=== PATIENT | male | born 1950 | race Caucasian/White ===

== ENCOUNTER 2017-08-12 10:47 | Inpatient (IN) | payer MEDICARE, MEDICAID ==
--- NOTE | 2017-08-12 11:02 | ED Physician Chart ---
ED Chief Complaint/HPI - Patient Information Date Seen:: 08/12/17 Time Seen:: 10:55 Chief Complaint:: Pt is here for medical clearance for Geropsych admission. History of Present Illness:: Brought in by private auto from assisted living facility for the above reason. Pt has h/o Paranoid schizophrenia, depression, and obsessive compulsive disorder. Pt apparently has had difficulty in adjusting to his current living condition. Pt otherwise feels well without bodily pain or discomfort. No dyspnea or lightheadedness. Pt has been ambulatory without difficulty. Pt currently denies any depressed mood, S.I. or H.I. No auditory or visual hallucination. Allergies:: NKA Vitals:: see Nurse Note. Historian:: Patient Family MD/PCP:: Dr. Holland LMP:: N/A Review:: Nurse's Note Reviewed ED Review of Systems - Review of Systems General/Constitutional: No fever, No chills, No weight loss, No weakness, No diaphoresis, No edema, No loss of appetite Skin: No rash, No bruising Head: No headache, No light-headedness Eyes: No loss of vision, No pain ENT: No earache, No sore throat Neck: No neck pain, No swelling, No thyromegaly, No stiffness, No mass noted Cardio Vascular: No chest pain, No palpitations, No edema Pulmonary: No SOB, No cough, No wheezing GI: No nausea, No vomiting, No diarrhea, No pain G/U: No dysuria, No frequency, No hematuria Musculoskeletal: No bone or joint pain Endocrine: No polyuria, No polydipsia Psychiatric: Prior psych history, No depression, No anxiety, No suicidal ideation, No homicidal ideation, No auditory hallucination, No visual hallucination Hematopoietic: No bruising, No lymphadenopathy Allergic/Immuno: No urticaria, No angioedema Neurological: No syncope, No focal symptoms, No weakness, No paresthesia, No headache, No seizure, No dizziness, No confusion ED Past Medical History - Past Medical History Past Medical History: HTN, Asthma/COPD, PUD/GERD, Thyroid disorder Family History: None Social History: Non Smoker, No Alcohol, No Drug Use, Single, Care Facility Employment:: unemployed. Surgical History: None Family Medical History - Family Member Mother History Unknown: Yes ED Physical Exam - Physical Examination General/Constitutional: Awake, Well-developed, well-nourished, Alert, No distress, Non-toxic appearing, Ambulatory Other Gen/Cons comments:: Breathes comfortably, speaks clearly, and ambulates without difficulty. Head: Atraumatic Eyes: Lids, conjuctiva normal, PERRL, EOMI Skin: Nl inspection, No rash, No ecchymosis, Well hydrated, No lymphadenopathy ENMT: External ears, nose nl, Nasal exam nl, Oropharynx nl Neck: Nontender, Full ROM w/o pain, No JVD, No nuchal rigidity, No mass, No stridor Respiratory: Nl effort/Exclusion, Clear to Auscultation, No Wheeze/Rhonchi/Rales Cardio Vascular: RRR (HR 96), No murmur, gallop, rubs GI: No tenderness/rebounding/guarding, No organomegaly, Normal BS's, Nondistended, No mass/bruits Other GI comments:: Abdomen is soft. : No CVA tenderness Extremities: No tenderness or effusion, No edema Neuro/Psych: Alert/oriented (oriented x 3), Mood normal, Normal gait, No focal deficits Misc: Normal back, No paraspinal tenderness ED Labs/Radiology/EKG Results - Lab Results Results: Laboratory Tests 08/12/17 08/12/17 08/12/17 11:18 11:18 11:18 WBC 8.4 RBC 4.54 Hgb 13.0 Hct 39.1 L MCV 86.2 MCH 28.7 MCHC Differential 33.3 RDW 14.7 Plt Count 178 MPV 8.1 Neutrophils % 73.3 Lymphocytes % 17.0 L Monocytes % 8.5 Eosinophils % 0.3 Basophils % 0.9 Sodium 135 L Potassium 4.0 Chloride 103 Carbon Dioxide 26.5 Anion Gap 9.5 BUN 16 Creatinine 0.7 Est GFR ( Amer) > 60.0 Est GFR (Non-Af Amer) > 60.0 BUN/Creatinine Ratio 22.9 Glucose 91 Calcium 9.3 Total Bilirubin 0.3 AST 13 ALT 7 Alkaline Phosphatase 47 Total Protein 7.1 Albumin 4.0 L Globulin 3.1 Albumin/Globulin Ratio 1.3 Valproic Acid 115.2 H TSH is pending. ED Septic Shock - . Is Septic Shock (SBP<90, OR Lactate>4 mmol\L) present?: No ED Reassessment (Disposition) - Reassessment Reassessment:: 1215 Pt remains stable. No new complaint or findings. Available lab results have been reviewed with pt. Management plan has been discussed. Pt is medically cleared for Geropsych admission. In house physician Dr. Mckay is to follow on pending lab resultsz and to provide further medical care. - Diagnosis Diagnosis:: H/O paranoid schizophrenia, depression, and obsessive compulsive disorder. H/O hypothyroidism. H/O HTN. - Patient Disposition Admitted to:: [facility] Admitting Medical Physician:: Tessie Bonds Admitting Psych Physician:: Ge Hollingsworth Time:: 12:20 Condition at Disposition:: Stable
[2017-08-12 11:33] LABS: % BASOPHILS 0.9 % (0.0-2.0); % EOSINOPHILS 0.3 % (0.0-5.0); % MONOCYTES 8.5 % (2.0-10.0); % NEUTROPHILS 73.3 % (40.0-80.0); BASOPHILE ABSOLUTE 0.1 Th/cumm (0-0.2); HEMATOCRIT 39.1 % (41.0-60); LYMPHOCYTE ABSOLUTE 1.4 Th/cmm (1.5-3.0); MEAN CELL VOLUME 86.2 fl (80-99); MEAN CORPUSCULAR HEMOGLOBIN 28.7 pg (27.0-31.0); MEAN CORPUSCULAR HGB CONC 33.3 pg (28.0-36.0); MEAN PLATELET VOLUME 8.1 fl; MONOCYTE ABSOLUTE 0.7 Th/cmm (0.3-1.0); NEUTROPHILE ABSOLUTE 6.2 Th/cmm (1.8-8.0); PLATELET COUNT 178 Th/cmm (150-400); RED BLOOD COUNT 4.54 Mil/cmm (3.80-5.80); RED CELL DISTRIBUTION WIDTH 14.7 % (11.5-20.0); WHITE BLOOD COUNT 8.4 Th/cmm (4.8-10.8)
[2017-08-12 11:52] LABS: ALB/GLOB RATIO 1.3 (1.0-1.8); ALKALINE PHOSPHATASE 47 U/L (34-104); ANION GAP 9.5 (7.0-16.0); BILIRUBIN,TOTAL 0.3 mg/dL (0.3-1.0); BUN - UREA NITROGEN 16 mg/dL (7-25); CALCIUM SERUM 9.3 mg/dL (8.6-10.3); CARBON DIOXIDE 26.5 mEq/L (21.0-31.0); CHLORIDE 103 mEq/L (98-107); CREATININE - SERUM 0.7 mg/dL (0.7-1.3); GFR AFRICAN-AMERICAN > 60.0 ml/min (>90); GFR NON AFRICAN-AMERICAN > 60.0 ml/min; GLUCOSE 91 mg/dL (70-105); SGOT 13 U/L (13-39); SGPT/ALT 7 U/L (7-52); SODIUM SERUM 135 mEq/L (136-145); TOTAL PROTEIN,SERUM 7.1 gm/dL (6.0-8.3); VALPROIC ACID 115.2 ug/mL (50.0-100.0)
[2017-08-12] MEDS ORDERED: Magnesium Hydroxide (MOM) 30 mL UDC PO PRN (13:34)
[2017-08-12] MEDS ORDERED: Maalox 30 mL Cup PO PRN ×2 (13:34→19:51)
[2017-08-12 13:38] VITALS: BP 116/76
--- NOTE | 2017-08-12 20:16 | History & Physical ---
ADMIT DATE: 08/12/2017 HISTORY OF PRESENT ILLNESS: The patient is a 67-year-old male with long history of hypothyroidism, psychosis, dementia, admitted to Geropsych Department at Dr. Hollingsworth's service to [facility]. The patient denies any chest pain, shortness of breath, nausea, vomiting, fever or chills. PAST MEDICAL HISTORY: Significant for hypothyroidism, psychosis and dementia. PAST SURGICAL HISTORY: No recent surgery. ALLERGIES: None. MEDICATIONS: Follow admission reconciliation. SOCIAL HISTORY: No smoking, no alcohol, no drug. FAMILY HISTORY: Noncontributory. REVIEW OF SYSTEMS: IMMUNOSYSTEM: No history of chronic renal disorder. CARDIOVASCULAR SYSTEM: No coronary artery disease. ENDOCRINE SYSTEM: He has history of hypothyroidism. GASTROINTESTINAL SYSTEM: No upper or lower gastrointestinal bleed. NEUROLOGICAL SYSTEM: He has a history of psychosis and dementia. SKELETOMUSCULAR SYSTEM: No muscular dystrophy. HEMATOLOGIC SYSTEM: No bleeding tendencies. RESPIRATORY SYSTEM: No asthma. GENITOURINARY: No dysuria or hematuria. PHYSICAL EXAMINATION: GENERAL: He is awake, alert, mildly confused. VITAL SIGNS: His temperature is 97.8, heart rate 106 and blood pressure 116/76. HEENT: Normocephalic. Pupils reacting to light. The sclerae are clear. NECK: Supple. Negative for lymphadenopathy, JVD or bruit. CHEST: Entry of air bilaterally normal. No rales, rhonchi or wheezing. HEART: S1 and S2 normal. No gallop rhythm. ABDOMEN: Soft, bowel sounds positive. EXTREMITIES: No edema. GENITAL AND RECTAL EXAMINATION: Done by primary physician, no complaint. NEUROLOGIC: Awake, alert and mildly confused. Cranial 1-12 is within normal limits. ASSESSMENT: 1. Hypothyroidism. 2. Psychosis. 3. Dementia. PLAN: The patient in the hospital under Dr. Hollingsworth's service. Medical problems addressed during hospitalization: Psychosis and dementia. Medical problems addressed at discharge: Hypothyroidism. The patient is medically stable for activity. Thank you, Dr. Hollingsworth, for asking me to see the patient. JOB# [id number]
[2017-08-13] MEDS ORDERED: Multivitamin Tab PO SCH (09:00)
[2017-08-13] MEDS: Levothyroxine 0.05 Mg Tab PO SCH (09:38)
[2017-08-13] MEDS: Multivitamin w/ Minerals Tab PO SCH (09:38)
--- NOTE | 2017-08-13 12:31 | Psychosocial Evaluation ---
DATE OF SERVICE: 08/13/2017 AGE: 67. SEX: Male. PHYSICIAN: Dr. Hollingsworth. CHIEF COMPLAINT: Agitation and bizarre behavior. HISTORY OF PRESENT ILLNESS: The patient was admitted to the hospital because of increased agitation and because of bizarre behavior according to the staff. The patient also has not been able to follow directions and has been restless. The patient also has been pacing up and down. The staff has not been able to care for him or for his needs. The patient has diagnosis of what seems to be bipolar disorder. The patient has been taking Depakote and Seroquel. The patient said that he was hospitalized on the past in [place] for treatment of "stress." PAST MEDICAL HISTORY: The patient denies any medical problems. SOCIAL HISTORY: The patient is single, never and has no children. He currently lives in what seems [place] [facility] [place]. The patient denies alcohol or street drug use. The patient said that he used to work in a [employer] in [place] and then he moved to [place] and then to [place]. The patient said that he has only one brother that lives in [place]. He denies any legal issues or abuse issues. ALLERGIES: No known allergies. MENTAL STATUS EXAMINATION: The patient appears slightly older than stated age. Anxious. Restless. Thought processes are circumstantial with occasional flight of ideas. The patient denied hallucinations or delusions, but seems to be slightly paranoid. The patient denies any thoughts of suicide or homicide. The patient is alert and oriented to time, place, person, and situation. Intact immediate, recent and remote memories. Poor insight and poor judgment. ASSESSMENT: Bipolar disorder, severe, mixed type, with psychotic features. TREATMENT PLAN: Depakote blood level came back to be 115.2. We will decrease Depakote to a 250 mg twice a day. Also, continue to monitor his behavior closely. ESTIMATED LENGTH OF STAY: 5-7 days. PATIENT'S STRENGTHS AND WEAKNESSES: The patient's strength is not clear at this time. Weaknesses is his ineffective coping and poor impulse control. AFTER DISCHARGE PLAN: The patient will return to his placement and outpatient treatment and followup will continue as an outpatient. CRITERIA FOR DISCHARGE: The patient will not be agitated or psychotic and will stabilize psychotropic medications and will establish outpatient treatment plans. JOB# [id number]
--- NOTE | 2017-08-13 19:35 | Internal Medicine Prog Note ---
Internal Medicine Subjective - Subjective Service Date: 08/13/17 Patient seen and examined:: with staff Patient is:: awake, verbal, in bed, talking, confused Per staff patient has:: no adverse event (HE IS DOING WELL,NO CHANGES) Internal Medicine Objective - Results Result Diagrams: 08/12/17 11:18 08/12/17 11:18 Recent Labs: Laboratory Last Values WBC 8.4 Th/cmm (4.8-10.8) 08/12/17 11:18 RBC 4.54 Mil/cmm (3.80-5.80) 08/12/17 11:18 Hgb 13.0 gm/dL (12-16) 08/12/17 11:18 Hct 39.1 % (41.0-60) L 08/12/17 11:18 MCV 86.2 fl (80-99) 08/12/17 11:18 MCH 28.7 pg (27.0-31.0) 08/12/17 11:18 MCHC Differential 33.3 pg (28.0-36.0) 08/12/17 11:18 RDW 14.7 % (11.5-20.0) 08/12/17 11:18 Plt Count 178 Th/cmm (150-400) 08/12/17 11:18 MPV 8.1 fl 08/12/17 11:18 Neutrophils % 73.3 % (40.0-80.0) 08/12/17 11:18 Lymphocytes % 17.0 % (20.0-50.0) L 08/12/17 11:18 Monocytes % 8.5 % (2.0-10.0) 08/12/17 11:18 Eosinophils % 0.3 % (0.0-5.0) 08/12/17 11:18 Basophils % 0.9 % (0.0-2.0) 08/12/17 11:18 Sodium 135 mEq/L (136-145) L 08/12/17 11:18 Potassium 4.0 mEq/L (3.5-5.1) 08/12/17 11:18 Chloride 103 mEq/L (98-107) 08/12/17 11:18 Carbon Dioxide 26.5 mEq/L (21.0-31.0) 08/12/17 11:18 Anion Gap 9.5 (7.0-16.0) 08/12/17 11:18 BUN 16 mg/dL (7-25) 08/12/17 11:18 Creatinine 0.7 mg/dL (0.7-1.3) 08/12/17 11:18 Est GFR ( Amer) > 60.0 ml/min (>90) 08/12/17 11:18 Est GFR (Non-Af Amer) > 60.0 ml/min 08/12/17 11:18 BUN/Creatinine Ratio 22.9 08/12/17 11:18 Glucose 91 mg/dL (70-105) 08/12/17 11:18 Calcium 9.3 mg/dL (8.6-10.3) 08/12/17 11:18 Total Bilirubin 0.3 mg/dL (0.3-1.0) 08/12/17 11:18 AST 13 U/L (13-39) 08/12/17 11:18 ALT 7 U/L (7-52) 08/12/17 11:18 Alkaline Phosphatase 47 U/L (34-104) 08/12/17 11:18 Total Protein 7.1 gm/dL (6.0-8.3) 08/12/17 11:18 Albumin 4.0 gm/dL (4.2-5.5) L 08/12/17 11:18 Globulin 3.1 gm/dL 08/12/17 11:18 Albumin/Globulin Ratio 1.3 (1.0-1.8) 08/12/17 11:18 TSH 3.48 uIU/ml (0.34-5.60) 08/12/17 11:18 Valproic Acid 115.2 ug/mL (50.0-100.0) H 08/12/17 11:18 - Physical Exam Vitals and I&O: Vital Signs Temp 97.5 F 08/13/17 16:57 Pulse 74 08/13/17 16:57 Resp 19 08/13/17 16:57 BP 117/88 08/13/17 16:57 Pulse Ox 96 08/13/17 16:57 Intake & Output 08/13/17 08/13/17 08/14/17 06:59 18:59 06:59 Intake Total 240 900 Balance 240 900 Intake: Oral 240 900 Other: # Voids 2 4 # Bowel Movements 0 1 Active Medications: Current Medications Acetaminophen (Tylenol) 650 mg PO Q4HR PRN PRN Reason: Mild Pain / Temp above 100 Stop: 10/11/17 13:33 Al Hydrox/Mg Hydrox/Simethicone (Maalox) 30 ml PO Q4HR PRN PRN Reason: GI DISTRESS Stop: 10/11/17 19:50 Divalproex Sodium (Depakote Dr) 250 mg PO BID EARL PRN Reason: Protocol Stop: 10/12/17 08:59 Last Admin: 08/13/17 17:00 Dose: 250 mg Levothyroxine Sodium (Synthroid) 0.05 mg PO DAILY EARL Stop: 10/12/17 08:59 Last Admin: 08/13/17 09:38 Dose: 0.05 mg Lorazepam (Ativan) 0.5 mg PO Q4HR PRN; Protocol PRN Reason: Agitation Stop: 09/11/17 13:33 Magnesium Hydroxide (Milk Of Magnesia) 30 ml PO HS PRN PRN Reason: Constipation Quetiapine Fumarate (Seroquel) 100 mg PO BID EARL PRN Reason: Protocol Stop: 10/12/17 08:59 Last Admin: 08/13/17 17:00 Dose: 100 mg Quetiapine Fumarate (Seroquel) 200 mg PO HS EARL PRN Reason: Protocol Stop: 10/12/17 20:59 Zolpidem Tartrate (Ambien) 5 mg PO HS PRN PRN Reason: Insomnia Stop: 10/11/17 13:37 General: demented HEENT: NC/AT, PERRLA, EOMI, anicteric sclerae, throat clear Neck: Supple, No JVD, No thyromegaly, +2 carotid pulse wo bruit, No LAD Lungs: CTAB Cardiovascular: RRR, Normal S1, Normal S2, without murmur Abdomen: non-tender, non-distended Extremities: clear Neurological: no change Internal Medicine Assmt/Plan - Assessment Assessment: 1.HYPOTHYROIDISM. 2.PSYCHOSIS. 3.DEMENTIA. - Plan Plan: CONTINUE ON CURRENT MEDICATTION AND DIET.
[2017-08-14] MEDS: Levothyroxine 0.05 Mg Tab PO SCH (08:12)
[2017-08-14] MEDS: Multivitamin w/ Minerals Tab PO SCH (08:12)
--- NOTE | 2017-08-14 20:24 | Internal Medicine Prog Note ---
Internal Medicine Subjective - Subjective Service Date: 08/14/17 Patient seen and examined:: with staff (HE FEELS WELL,NO PAIN.) Patient is:: awake, verbal, in bed, talking, confused Per staff patient has:: no adverse event (HE IS DOING WELL,NO CHANGES) Internal Medicine Objective - Results Result Diagrams: 08/12/17 11:18 08/12/17 11:18 Recent Labs: Laboratory Last Values WBC 8.4 Th/cmm (4.8-10.8) 08/12/17 11:18 RBC 4.54 Mil/cmm (3.80-5.80) 08/12/17 11:18 Hgb 13.0 gm/dL (12-16) 08/12/17 11:18 Hct 39.1 % (41.0-60) L 08/12/17 11:18 MCV 86.2 fl (80-99) 08/12/17 11:18 MCH 28.7 pg (27.0-31.0) 08/12/17 11:18 MCHC Differential 33.3 pg (28.0-36.0) 08/12/17 11:18 RDW 14.7 % (11.5-20.0) 08/12/17 11:18 Plt Count 178 Th/cmm (150-400) 08/12/17 11:18 MPV 8.1 fl 08/12/17 11:18 Neutrophils % 73.3 % (40.0-80.0) 08/12/17 11:18 Lymphocytes % 17.0 % (20.0-50.0) L 08/12/17 11:18 Monocytes % 8.5 % (2.0-10.0) 08/12/17 11:18 Eosinophils % 0.3 % (0.0-5.0) 08/12/17 11:18 Basophils % 0.9 % (0.0-2.0) 08/12/17 11:18 Sodium 135 mEq/L (136-145) L 08/12/17 11:18 Potassium 4.0 mEq/L (3.5-5.1) 08/12/17 11:18 Chloride 103 mEq/L (98-107) 08/12/17 11:18 Carbon Dioxide 26.5 mEq/L (21.0-31.0) 08/12/17 11:18 Anion Gap 9.5 (7.0-16.0) 08/12/17 11:18 BUN 16 mg/dL (7-25) 08/12/17 11:18 Creatinine 0.7 mg/dL (0.7-1.3) 08/12/17 11:18 Est GFR ( Amer) > 60.0 ml/min (>90) 08/12/17 11:18 Est GFR (Non-Af Amer) > 60.0 ml/min 08/12/17 11:18 BUN/Creatinine Ratio 22.9 08/12/17 11:18 Glucose 91 mg/dL (70-105) 08/12/17 11:18 Calcium 9.3 mg/dL (8.6-10.3) 08/12/17 11:18 Total Bilirubin 0.3 mg/dL (0.3-1.0) 08/12/17 11:18 AST 13 U/L (13-39) 08/12/17 11:18 ALT 7 U/L (7-52) 08/12/17 11:18 Alkaline Phosphatase 47 U/L (34-104) 08/12/17 11:18 Total Protein 7.1 gm/dL (6.0-8.3) 08/12/17 11:18 Albumin 4.0 gm/dL (4.2-5.5) L 08/12/17 11:18 Globulin 3.1 gm/dL 08/12/17 11:18 Albumin/Globulin Ratio 1.3 (1.0-1.8) 08/12/17 11:18 TSH 3.48 uIU/ml (0.34-5.60) 08/12/17 11:18 Valproic Acid 115.2 ug/mL (50.0-100.0) H 08/12/17 11:18 - Physical Exam Vitals and I&O: Vital Signs Temp 97.8 F 08/14/17 20:01 Pulse 98 08/14/17 20:01 Resp 20 08/14/17 20:01 BP 135/85 08/14/17 20:01 Pulse Ox 97 08/14/17 20:01 Intake & Output 08/14/17 08/14/17 08/15/17 06:59 18:59 06:59 Intake Total 900 240 Balance 900 240 Intake: Oral 900 240 Other: # Voids 4 1 # Bowel Movements 1 Active Medications: Current Medications Acetaminophen (Tylenol) 650 mg PO Q4HR PRN PRN Reason: Mild Pain / Temp above 100 Stop: 10/11/17 13:33 Al Hydrox/Mg Hydrox/Simethicone (Maalox) 30 ml PO Q4HR PRN PRN Reason: GI DISTRESS Stop: 10/11/17 19:50 Divalproex Sodium (Depakote Dr) 250 mg PO BID EARL PRN Reason: Protocol Stop: 10/12/17 08:59 Last Admin: 08/14/17 17:24 Dose: 250 mg Levothyroxine Sodium (Synthroid) 0.05 mg PO DAILY EARL Stop: 10/12/17 08:59 Last Admin: 08/14/17 08:12 Dose: 0.05 mg Lorazepam (Ativan) 0.5 mg PO Q4HR PRN; Protocol PRN Reason: Agitation Stop: 09/11/17 13:33 Magnesium Hydroxide (Milk Of Magnesia) 30 ml PO HS PRN PRN Reason: Constipation Quetiapine Fumarate (Seroquel) 100 mg PO BID EARL PRN Reason: Protocol Stop: 10/12/17 08:59 Last Admin: 08/14/17 17:24 Dose: 100 mg Quetiapine Fumarate (Seroquel) 200 mg PO HS EARL PRN Reason: Protocol Stop: 10/12/17 20:59 Last Admin: 08/13/17 20:43 Dose: 200 mg Zolpidem Tartrate (Ambien) 5 mg PO HS PRN PRN Reason: Insomnia Stop: 10/11/17 13:37 General: demented HEENT: NC/AT, PERRLA, EOMI, anicteric sclerae, throat clear Neck: Supple, No JVD, No thyromegaly, +2 carotid pulse wo bruit, No LAD Lungs: CTAB Cardiovascular: RRR, Normal S1, Normal S2, without murmur Abdomen: non-tender, non-distended Extremities: clear Neurological: no change Internal Medicine Assmt/Plan - Assessment Assessment: 1.HYPOTHYROIDISM. 2.PSYCHOSIS. 3.DEMENTIA. - Plan Plan: CONTINUE ON CURRENT MEDICATTION AND DIET.
--- NOTE | 2017-08-15 01:14 | Progress Notes ---
DATE: 08/14/2017 SUBJECTIVE: Chart reviewed and the patient interviewed. Also discussed the patient's condition with the staff and reviewed records and labs. The patient continued to have some grandiose delusions and he thinks that he is in an senior trial attorney and talking ____ accounting assistant. 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 He also is still suspicious and paranoid. The patient also has been having difficulty following the staff directions. He also has been slightly shaky. Otherwise, the patient is compliant with taking medications. The patient has no major medical problems. ASSESSMENT: The patient is still psychotic. TREATMENT PLAN: We will continue Seroquel. We are adjusting the dose to 100 mg twice a day. Also, we will continue working on behavior modification. Also, discussed with case techniciandairy frozen manager issue and the patient might go to [facility] or [facility] when stable. JOB# [id number]
[2017-08-15] MEDS: Levothyroxine 0.05 Mg Tab PO SCH (09:30)
[2017-08-15] MEDS: Multivitamin w/ Minerals Tab PO SCH (09:30)
--- NOTE | 2017-08-15 19:33 | Internal Medicine Prog Note ---
Internal Medicine Subjective - Subjective Service Date: 08/15/17 Patient seen and examined:: with staff (HE FEELS BETTER) Patient is:: awake, verbal, in bed, talking, confused Per staff patient has:: no adverse event (HE IS DOING WELL,NO CHANGES) Internal Medicine Objective - Results Result Diagrams: 08/12/17 11:18 08/12/17 11:18 Recent Labs: Laboratory Last Values WBC 8.4 Th/cmm (4.8-10.8) 08/12/17 11:18 RBC 4.54 Mil/cmm (3.80-5.80) 08/12/17 11:18 Hgb 13.0 gm/dL (12-16) 08/12/17 11:18 Hct 39.1 % (41.0-60) L 08/12/17 11:18 MCV 86.2 fl (80-99) 08/12/17 11:18 MCH 28.7 pg (27.0-31.0) 08/12/17 11:18 MCHC Differential 33.3 pg (28.0-36.0) 08/12/17 11:18 RDW 14.7 % (11.5-20.0) 08/12/17 11:18 Plt Count 178 Th/cmm (150-400) 08/12/17 11:18 MPV 8.1 fl 08/12/17 11:18 Neutrophils % 73.3 % (40.0-80.0) 08/12/17 11:18 Lymphocytes % 17.0 % (20.0-50.0) L 08/12/17 11:18 Monocytes % 8.5 % (2.0-10.0) 08/12/17 11:18 Eosinophils % 0.3 % (0.0-5.0) 08/12/17 11:18 Basophils % 0.9 % (0.0-2.0) 08/12/17 11:18 Sodium 135 mEq/L (136-145) L 08/12/17 11:18 Potassium 4.0 mEq/L (3.5-5.1) 08/12/17 11:18 Chloride 103 mEq/L (98-107) 08/12/17 11:18 Carbon Dioxide 26.5 mEq/L (21.0-31.0) 08/12/17 11:18 Anion Gap 9.5 (7.0-16.0) 08/12/17 11:18 BUN 16 mg/dL (7-25) 08/12/17 11:18 Creatinine 0.7 mg/dL (0.7-1.3) 08/12/17 11:18 Est GFR ( Amer) > 60.0 ml/min (>90) 08/12/17 11:18 Est GFR (Non-Af Amer) > 60.0 ml/min 08/12/17 11:18 BUN/Creatinine Ratio 22.9 08/12/17 11:18 Glucose 91 mg/dL (70-105) 08/12/17 11:18 Calcium 9.3 mg/dL (8.6-10.3) 08/12/17 11:18 Total Bilirubin 0.3 mg/dL (0.3-1.0) 08/12/17 11:18 AST 13 U/L (13-39) 08/12/17 11:18 ALT 7 U/L (7-52) 08/12/17 11:18 Alkaline Phosphatase 47 U/L (34-104) 08/12/17 11:18 Total Protein 7.1 gm/dL (6.0-8.3) 08/12/17 11:18 Albumin 4.0 gm/dL (4.2-5.5) L 08/12/17 11:18 Globulin 3.1 gm/dL 08/12/17 11:18 Albumin/Globulin Ratio 1.3 (1.0-1.8) 08/12/17 11:18 TSH 3.48 uIU/ml (0.34-5.60) 08/12/17 11:18 Valproic Acid 115.2 ug/mL (50.0-100.0) H 08/12/17 11:18 - Physical Exam Vitals and I&O: Vital Signs Temp 97.8 F 08/15/17 15:58 Pulse 98 08/15/17 15:58 Resp 20 08/15/17 15:58 BP 135/85 08/15/17 15:58 Pulse Ox 97 08/15/17 15:58 Intake & Output 08/15/17 08/15/17 08/16/17 06:59 18:59 06:59 Intake Total 240 1400 Balance 240 1400 Intake: Oral 240 1400 Other: # Voids 1 5 # Bowel Movements 1 Active Medications: Current Medications Acetaminophen (Tylenol) 650 mg PO Q4HR PRN PRN Reason: Mild Pain / Temp above 100 Stop: 10/11/17 13:33 Al Hydrox/Mg Hydrox/Simethicone (Maalox) 30 ml PO Q4HR PRN PRN Reason: GI DISTRESS Stop: 10/11/17 19:50 Divalproex Sodium (Depakote Dr) 250 mg PO BID EARL PRN Reason: Protocol Stop: 10/12/17 08:59 Last Admin: 08/15/17 16:11 Dose: 250 mg Levothyroxine Sodium (Synthroid) 0.05 mg PO DAILY EARL Stop: 10/12/17 08:59 Last Admin: 08/15/17 09:30 Dose: 0.05 mg Lorazepam (Ativan) 0.5 mg PO Q4HR PRN; Protocol PRN Reason: Agitation Stop: 09/11/17 13:33 Magnesium Hydroxide (Milk Of Magnesia) 30 ml PO HS PRN PRN Reason: Constipation Quetiapine Fumarate (Seroquel) 100 mg PO BID EARL PRN Reason: Protocol Stop: 10/12/17 08:59 Last Admin: 08/15/17 16:11 Dose: 100 mg Quetiapine Fumarate (Seroquel) 200 mg PO HS EARL PRN Reason: Protocol Stop: 10/12/17 20:59 Last Admin: 08/14/17 21:31 Dose: 200 mg Zolpidem Tartrate (Ambien) 5 mg PO HS PRN PRN Reason: Insomnia Stop: 10/11/17 13:37 General: demented HEENT: NC/AT, PERRLA, EOMI, anicteric sclerae, throat clear Neck: Supple, No JVD, No thyromegaly, +2 carotid pulse wo bruit, No LAD Lungs: CTAB Cardiovascular: RRR, Normal S1, Normal S2, without murmur Abdomen: non-tender, non-distended Extremities: clear Neurological: no change Internal Medicine Assmt/Plan - Assessment Assessment: 1.HYPOTHYROIDISM. 2.PSYCHOSIS. 3.DEMENTIA. - Plan Plan: CONTINUE ON CURRENT MEDICATTION AND DIET.
--- NOTE | 2017-08-15 23:42 | Progress Notes ---
DATE: SUBJECTIVE: Chart reviewed and the patient interviewed. Also discussed the patient's condition with the staff and reviewed records and labs. The patient still has grandiose delusion and also still acting bizarre. The patient also is still pacing up and down the facility in a confused state. Also, still needs redirections because he is intrusive to others. Otherwise, the patient continued to comply with taking his medications with no side effects of Seroquel. ASSESSMENT: The patient is still psychotic. TREATMENT PLAN: Continue to monitor behavior and condition closely. Also, continue to work on confusion and paranoia and continue to follow up. Also, classification case manager working on discharge plans. JOB# [id number]
[2017-08-16] MEDS: Multivitamin w/ Minerals Tab PO SCH (08:43)
[2017-08-16] MEDS: Levothyroxine 0.05 Mg Tab PO SCH (08:45)
[2017-08-16] MEDS ORDERED: Haloperidol Lactate 5 mg/mL 1mL Vial ONE (16:03)
[2017-08-16] MEDS ORDERED: Haloperidol Lactate 5 mg/mL 1mL Vial IM ONE (16:06)
--- NOTE | 2017-08-16 19:25 | Internal Medicine Prog Note ---
Internal Medicine Subjective - Subjective Service Date: 08/16/17 Patient seen and examined:: without staff Patient is:: awake, verbal, in bed, talking, confused Per staff patient has:: no adverse event (HE IS DOING WELL,NO CHANGES) Internal Medicine Objective - Results Result Diagrams: 08/12/17 11:18 08/12/17 11:18 Recent Labs: Laboratory Last Values WBC 8.4 Th/cmm (4.8-10.8) 08/12/17 11:18 RBC 4.54 Mil/cmm (3.80-5.80) 08/12/17 11:18 Hgb 13.0 gm/dL (12-16) 08/12/17 11:18 Hct 39.1 % (41.0-60) L 08/12/17 11:18 MCV 86.2 fl (80-99) 08/12/17 11:18 MCH 28.7 pg (27.0-31.0) 08/12/17 11:18 MCHC Differential 33.3 pg (28.0-36.0) 08/12/17 11:18 RDW 14.7 % (11.5-20.0) 08/12/17 11:18 Plt Count 178 Th/cmm (150-400) 08/12/17 11:18 MPV 8.1 fl 08/12/17 11:18 Neutrophils % 73.3 % (40.0-80.0) 08/12/17 11:18 Lymphocytes % 17.0 % (20.0-50.0) L 08/12/17 11:18 Monocytes % 8.5 % (2.0-10.0) 08/12/17 11:18 Eosinophils % 0.3 % (0.0-5.0) 08/12/17 11:18 Basophils % 0.9 % (0.0-2.0) 08/12/17 11:18 Sodium 135 mEq/L (136-145) L 08/12/17 11:18 Potassium 4.0 mEq/L (3.5-5.1) 08/12/17 11:18 Chloride 103 mEq/L (98-107) 08/12/17 11:18 Carbon Dioxide 26.5 mEq/L (21.0-31.0) 08/12/17 11:18 Anion Gap 9.5 (7.0-16.0) 08/12/17 11:18 BUN 16 mg/dL (7-25) 08/12/17 11:18 Creatinine 0.7 mg/dL (0.7-1.3) 08/12/17 11:18 Est GFR ( Amer) > 60.0 ml/min (>90) 08/12/17 11:18 Est GFR (Non-Af Amer) > 60.0 ml/min 08/12/17 11:18 BUN/Creatinine Ratio 22.9 08/12/17 11:18 Glucose 91 mg/dL (70-105) 08/12/17 11:18 Calcium 9.3 mg/dL (8.6-10.3) 08/12/17 11:18 Total Bilirubin 0.3 mg/dL (0.3-1.0) 08/12/17 11:18 AST 13 U/L (13-39) 08/12/17 11:18 ALT 7 U/L (7-52) 08/12/17 11:18 Alkaline Phosphatase 47 U/L (34-104) 08/12/17 11:18 Total Protein 7.1 gm/dL (6.0-8.3) 08/12/17 11:18 Albumin 4.0 gm/dL (4.2-5.5) L 08/12/17 11:18 Globulin 3.1 gm/dL 08/12/17 11:18 Albumin/Globulin Ratio 1.3 (1.0-1.8) 08/12/17 11:18 TSH 3.48 uIU/ml (0.34-5.60) 08/12/17 11:18 Valproic Acid 115.2 ug/mL (50.0-100.0) H 08/12/17 11:18 - Physical Exam Vitals and I&O: Vital Signs Temp 97.8 F 08/15/17 15:58 Pulse 98 08/15/17 15:58 Resp 20 08/15/17 15:58 BP 135/85 08/15/17 15:58 Pulse Ox 97 08/15/17 15:58 Active Medications: Current Medications Acetaminophen (Tylenol) 650 mg PO Q4HR PRN PRN Reason: Mild Pain / Temp above 100 Stop: 10/11/17 13:33 Al Hydrox/Mg Hydrox/Simethicone (Maalox) 30 ml PO Q4HR PRN PRN Reason: GI DISTRESS Stop: 10/11/17 19:50 Divalproex Sodium (Depakote Dr) 250 mg PO BID EARL PRN Reason: Protocol Stop: 10/12/17 08:59 Last Admin: 08/16/17 18:01 Dose: Not Given Levothyroxine Sodium (Synthroid) 0.05 mg PO DAILY EARL Stop: 10/12/17 08:59 Last Admin: 08/16/17 08:45 Dose: Not Given Lorazepam (Ativan) 0.5 mg PO Q4HR PRN; Protocol PRN Reason: Agitation Stop: 09/11/17 13:33 Last Admin: 08/16/17 14:13 Dose: 0.5 mg Magnesium Hydroxide (Milk Of Magnesia) 30 ml PO HS PRN PRN Reason: Constipation Quetiapine Fumarate (Seroquel) 150 mg PO BID EARL PRN Reason: Protocol Stop: 10/12/17 08:59 Last Admin: 08/16/17 18:01 Dose: Not Given Quetiapine Fumarate (Seroquel) 300 mg PO HS EARL PRN Reason: Protocol Stop: 10/12/17 20:59 Zolpidem Tartrate (Ambien) 5 mg PO HS PRN PRN Reason: Insomnia Stop: 10/11/17 13:37 General: demented HEENT: NC/AT, PERRLA, EOMI, anicteric sclerae, throat clear Neck: Supple, No JVD, No thyromegaly, +2 carotid pulse wo bruit, No LAD Lungs: CTAB Cardiovascular: RRR, Normal S1, Normal S2, without murmur Abdomen: non-tender, non-distended Extremities: clear Neurological: no change Internal Medicine Assmt/Plan - Assessment Assessment: 1.HYPOTHYROIDISM. 2.PSYCHOSIS. 3.DEMENTIA. - Plan Plan: CONTINUE ON CURRENT MEDICATTION AND DIET.
[2017-08-17] MEDS: Levothyroxine 0.05 Mg Tab PO SCH (08:17)
[2017-08-17] MEDS: Multivitamin w/ Minerals Tab PO SCH (08:17)
--- NOTE | 2017-08-17 08:47 | Progress Notes ---
DATE: 08/16/2017 SUBJECTIVE: Chart reviewed and the patient interviewed. Also discussed the patient's condition with the staff and reviewed records and labs. The patient continued to be severely agitated and in irritable mood. The patient also actively responded to stimuli. The patient has been slamming doors and has been yelling and screaming and loud. Also, continued to be intrusive to others. Otherwise, the patient is compliance with medications and no side effects of medications. ASSESSMENT: The patient is still psychotic. TREATMENT PLAN: We will continue monitoring his behavior and his condition closely. Also, we will increase Seroquel to 150 mg twice a day and 300 mg at bedtime and will continue to follow up closely. [facility]# [id number]
--- NOTE | 2017-08-17 08:54 | Progress Notes ---
DATE: 08/17/2017 PSYCHIATRIC PROGRESS NOTE Chart reviewed and patient interviewed. Also discussed the patient's condition with the staff and reviewed the records and labs. The patient is still extremely agitated and irritable mood. Also, is actively hallucinating and staff notes that the patient has been crawling his finger on doors and talking to himself and actively responding. Also still easily agitated and easily irritable. Otherwise, the patient is cooperative with his treatment and compliant with taking his medications. ASSESSMENT: The patient is still irritable and agitated. TREATMENT PLAN: We will continue monitoring his behavior and his condition closely. Also, we will increase the Seroquel to 150 mg twice a day and 400 mg at bedtime and will continue to follow up closely. JOB# [id number]
--- NOTE | 2017-08-17 21:23 | Internal Medicine Prog Note ---
Internal Medicine Subjective - Subjective Service Date: 08/17/17 Patient seen and examined:: without staff Patient is:: awake, verbal, in bed, talking, confused Per staff patient has:: no adverse event (HE IS DOING WELL,NO CHANGES) Internal Medicine Objective - Results Result Diagrams: 08/12/17 11:18 08/12/17 11:18 Recent Labs: Laboratory Last Values WBC 8.4 Th/cmm (4.8-10.8) 08/12/17 11:18 RBC 4.54 Mil/cmm (3.80-5.80) 08/12/17 11:18 Hgb 13.0 gm/dL (12-16) 08/12/17 11:18 Hct 39.1 % (41.0-60) L 08/12/17 11:18 MCV 86.2 fl (80-99) 08/12/17 11:18 MCH 28.7 pg (27.0-31.0) 08/12/17 11:18 MCHC Differential 33.3 pg (28.0-36.0) 08/12/17 11:18 RDW 14.7 % (11.5-20.0) 08/12/17 11:18 Plt Count 178 Th/cmm (150-400) 08/12/17 11:18 MPV 8.1 fl 08/12/17 11:18 Neutrophils % 73.3 % (40.0-80.0) 08/12/17 11:18 Lymphocytes % 17.0 % (20.0-50.0) L 08/12/17 11:18 Monocytes % 8.5 % (2.0-10.0) 08/12/17 11:18 Eosinophils % 0.3 % (0.0-5.0) 08/12/17 11:18 Basophils % 0.9 % (0.0-2.0) 08/12/17 11:18 Sodium 135 mEq/L (136-145) L 08/12/17 11:18 Potassium 4.0 mEq/L (3.5-5.1) 08/12/17 11:18 Chloride 103 mEq/L (98-107) 08/12/17 11:18 Carbon Dioxide 26.5 mEq/L (21.0-31.0) 08/12/17 11:18 Anion Gap 9.5 (7.0-16.0) 08/12/17 11:18 BUN 16 mg/dL (7-25) 08/12/17 11:18 Creatinine 0.7 mg/dL (0.7-1.3) 08/12/17 11:18 Est GFR ( Amer) > 60.0 ml/min (>90) 08/12/17 11:18 Est GFR (Non-Af Amer) > 60.0 ml/min 08/12/17 11:18 BUN/Creatinine Ratio 22.9 08/12/17 11:18 Glucose 91 mg/dL (70-105) 08/12/17 11:18 Calcium 9.3 mg/dL (8.6-10.3) 08/12/17 11:18 Total Bilirubin 0.3 mg/dL (0.3-1.0) 08/12/17 11:18 AST 13 U/L (13-39) 08/12/17 11:18 ALT 7 U/L (7-52) 08/12/17 11:18 Alkaline Phosphatase 47 U/L (34-104) 08/12/17 11:18 Total Protein 7.1 gm/dL (6.0-8.3) 08/12/17 11:18 Albumin 4.0 gm/dL (4.2-5.5) L 08/12/17 11:18 Globulin 3.1 gm/dL 08/12/17 11:18 Albumin/Globulin Ratio 1.3 (1.0-1.8) 08/12/17 11:18 TSH 3.48 uIU/ml (0.34-5.60) 08/12/17 11:18 Valproic Acid 115.2 ug/mL (50.0-100.0) H 08/12/17 11:18 - Physical Exam Vitals and I&O: Vital Signs Temp 98.5 F 08/17/17 21:05 Pulse 87 08/17/17 21:05 Resp 20 08/17/17 21:05 BP 112/73 08/17/17 21:05 Pulse Ox 96 08/17/17 21:05 Intake & Output 08/17/17 08/17/17 08/18/17 06:59 18:59 06:59 Intake Total 120 120 Balance 120 120 Intake: Oral 120 120 Other: # Voids 3 1 # Bowel Movements 0 Active Medications: Current Medications Acetaminophen (Tylenol) 650 mg PO Q4HR PRN PRN Reason: Mild Pain / Temp above 100 Stop: 10/11/17 13:33 Al Hydrox/Mg Hydrox/Simethicone (Maalox) 30 ml PO Q4HR PRN PRN Reason: GI DISTRESS Stop: 10/11/17 19:50 Divalproex Sodium (Depakote Dr) 250 mg PO BID EARL PRN Reason: Protocol Stop: 10/12/17 08:59 Last Admin: 08/17/17 17:29 Dose: 250 mg Levothyroxine Sodium (Synthroid) 0.05 mg PO DAILY EARL Stop: 10/12/17 08:59 Last Admin: 08/17/17 08:17 Dose: 0.05 mg Lorazepam (Ativan) 0.5 mg PO Q4HR PRN; Protocol PRN Reason: Agitation Stop: 09/11/17 13:33 Last Admin: 08/17/17 16:13 Dose: 0.5 mg Magnesium Hydroxide (Milk Of Magnesia) 30 ml PO HS PRN PRN Reason: Constipation Quetiapine Fumarate (Seroquel) 150 mg PO BID EARL PRN Reason: Protocol Stop: 10/12/17 08:59 Last Admin: 08/17/17 17:29 Dose: 150 mg Quetiapine Fumarate (Seroquel) 400 mg PO HS EARL PRN Reason: Protocol Stop: 10/12/17 20:59 Zolpidem Tartrate (Ambien) 5 mg PO HS PRN PRN Reason: Insomnia Stop: 10/11/17 13:37 General: demented HEENT: NC/AT, PERRLA, EOMI, anicteric sclerae, throat clear Neck: Supple, No JVD, No thyromegaly, +2 carotid pulse wo bruit, No LAD Lungs: CTAB Cardiovascular: RRR, Normal S1, Normal S2, without murmur Abdomen: non-tender, non-distended Extremities: clear Neurological: no change Internal Medicine Assmt/Plan - Assessment Assessment: 1.HYPOTHYROIDISM. 2.PSYCHOSIS. 3.DEMENTIA. - Plan Plan: CONTINUE ON CURRENT MEDICATTION AND DIET. Nutritional Asmnt/Malnutr-PDOC - Dietary Evaluation Malnutrition Findings (Please click <Entered> for more info): Nutritional Asmnt/Malnutrition Start: 08/17/17 15: 20 Text: Status: Complete Freq: Document 08/17/17 15:20 SUNITAYASSINE (Rec: 08/17/17 15:28 LCYASSINE [email or web address]) Nutritional Asmnt/Malnutrition Patient General Information Nutritional Screening Moderate Risk Diagnosis psychosis Pertinent Medical Hx/Surgical Hx Chronic renal disorder, hypothyroidism, psychosis, denmentia Subjective Information Pt seen sitting in dinning room, alert and polite. Pt reported good appetite, waiting for lunch. Per note, PO intake 50-100%. Current Diet Order/ Nutrition Support regular, low sodium Pertinent Medications synthroid, seroquel Pertinent Labs 08/12 Na 135, Alb 4.0 Nutritional Hx/Data Height 1.75 m Height (Calculated Centimeters) 175.3 Current Weight (lbs) 68.039 kg Weight (Calculated Kilograms) 68.0 Weight (Calculated Grams) 86351.9 [place] Body Weight 160 % [place] Body Weight 94 Body Mass Index (BMI) 22.1 Weight Status Approriate GI Symptoms GI Symptoms None Last BM 08/15 Difficult in: None Skin Integrity/Comment: intact Current %PO Good (75-100%) Estimated Nutritional Goals BEE in Kcals: Using Current wt Calories/Kcals/Kg 25-30 Kcals Calculated 3085-1960 Protein: Using Current wt Protein g/k Protein Calculated 68 Fluid: ml 4103-9535 Nutritional Problem No current Nutrition Prob Problem no nutrition problem at this time Malnutrition Alert Protein-Calorie Malnutrition N/A Is there a minimum of two criteria No selected? Query Text:Check all the applicable criteria. A minimum of two criteria are recommended for diagnosis of either severe or non-severe malnutrition. Intervention/Recommendation Comments 1. Continue with current diet as ordered. 2. Monitor PO intake, wt weekly, labs and skin integrity 3. F/U as low risk in 7 days, 08/24 Expected Outcomes/Goals Expected Outcomes/Goals 1. PO intake to meet at least 75% of nutritional needs. 2. Wt stability, skin to remain intact, labs to approach WNL.
[2017-08-18] MEDS: Levothyroxine 0.05 Mg Tab PO SCH (08:17)
[2017-08-18] MEDS: Multivitamin w/ Minerals Tab PO SCH (08:18)
--- NOTE | 2017-08-18 08:41 | Progress Notes ---
DATE: 08/18/2017 SUBJECTIVE: The patient seen, chart reviewed, discussed with staff. The patient in the hospital due to increased agitation, bizarre behaviors, poor direction, restless. History of seemingly bipolar disorder. States he is from , believes he is here because he left the board and care. "I was discussed there". Dr. Hollingsworth has been seeing the patient over the past few days, noting he remains irritable, impulsive, agitated, still hallucinating. MEDICATIONS: Reviewed including doses and frequencies, eating fairly well, sleeping well, although he wakes up very early. ASSESSMENT: The patient is irritable, agitated, still with poor ADLs, malodorous. PLAN: We will monitor and follow up. Given recent dose increase of Seroquel, will continue at current dose. The patient is not safe for a lower level of care at this time. JOB# [id number]
--- NOTE | 2017-08-18 18:22 | General Progress Note ---
Subjective - Review of Systems Service Date: 08/18/17 Subjective: resting comfortably no distress Objective - Results Result Diagrams: 08/12/17 11:18 08/12/17 11:18 Recent Labs: Laboratory Last Values WBC 8.4 Th/cmm (4.8-10.8) 08/12/17 11:18 RBC 4.54 Mil/cmm (3.80-5.80) 08/12/17 11:18 Hgb 13.0 gm/dL (12-16) 08/12/17 11:18 Hct 39.1 % (41.0-60) L 08/12/17 11:18 MCV 86.2 fl (80-99) 08/12/17 11:18 MCH 28.7 pg (27.0-31.0) 08/12/17 11:18 MCHC Differential 33.3 pg (28.0-36.0) 08/12/17 11:18 RDW 14.7 % (11.5-20.0) 08/12/17 11:18 Plt Count 178 Th/cmm (150-400) 08/12/17 11:18 MPV 8.1 fl 08/12/17 11:18 Neutrophils % 73.3 % (40.0-80.0) 08/12/17 11:18 Lymphocytes % 17.0 % (20.0-50.0) L 08/12/17 11:18 Monocytes % 8.5 % (2.0-10.0) 08/12/17 11:18 Eosinophils % 0.3 % (0.0-5.0) 08/12/17 11:18 Basophils % 0.9 % (0.0-2.0) 08/12/17 11:18 Sodium 135 mEq/L (136-145) L 08/12/17 11:18 Potassium 4.0 mEq/L (3.5-5.1) 08/12/17 11:18 Chloride 103 mEq/L (98-107) 08/12/17 11:18 Carbon Dioxide 26.5 mEq/L (21.0-31.0) 08/12/17 11:18 Anion Gap 9.5 (7.0-16.0) 08/12/17 11:18 BUN 16 mg/dL (7-25) 08/12/17 11:18 Creatinine 0.7 mg/dL (0.7-1.3) 08/12/17 11:18 Est GFR ( Amer) > 60.0 ml/min (>90) 08/12/17 11:18 Est GFR (Non-Af Amer) > 60.0 ml/min 08/12/17 11:18 BUN/Creatinine Ratio 22.9 08/12/17 11:18 Glucose 91 mg/dL (70-105) 08/12/17 11:18 Calcium 9.3 mg/dL (8.6-10.3) 08/12/17 11:18 Total Bilirubin 0.3 mg/dL (0.3-1.0) 08/12/17 11:18 AST 13 U/L (13-39) 08/12/17 11:18 ALT 7 U/L (7-52) 08/12/17 11:18 Alkaline Phosphatase 47 U/L (34-104) 08/12/17 11:18 Total Protein 7.1 gm/dL (6.0-8.3) 08/12/17 11:18 Albumin 4.0 gm/dL (4.2-5.5) L 08/12/17 11:18 Globulin 3.1 gm/dL 08/12/17 11:18 Albumin/Globulin Ratio 1.3 (1.0-1.8) 08/12/17 11:18 TSH 3.48 uIU/ml (0.34-5.60) 08/12/17 11:18 Valproic Acid 115.2 ug/mL (50.0-100.0) H 08/12/17 11:18 - Physical Exam Vitals and I&O: Vital Signs Temp 97.9 F 08/18/17 14:00 Pulse 97 08/18/17 14:00 Resp 18 08/18/17 14:00 BP 136/78 08/18/17 14:00 Pulse Ox 96 08/18/17 14:00 Intake & Output 08/17/17 08/18/17 08/18/17 18:59 06:59 18:59 Intake Total 240 1000 Balance 240 1000 Intake: Oral 240 1000 Other: # Voids 1 4 # Bowel Movements 0 1 Active Medications: Current Medications Acetaminophen (Tylenol) 650 mg PO Q4HR PRN PRN Reason: Mild Pain / Temp above 100 Stop: 10/11/17 13:33 Al Hydrox/Mg Hydrox/Simethicone (Maalox) 30 ml PO Q4HR PRN PRN Reason: GI DISTRESS Stop: 10/11/17 19:50 Divalproex Sodium (Depakote Dr) 250 mg PO BID EARL PRN Reason: Protocol Stop: 10/12/17 08:59 Last Admin: 08/18/17 16:24 Dose: 250 mg Levothyroxine Sodium (Synthroid) 0.05 mg PO DAILY EARL Stop: 10/12/17 08:59 Last Admin: 08/18/17 08:17 Dose: 0.05 mg Lorazepam (Ativan) 0.5 mg PO Q4HR PRN; Protocol PRN Reason: Agitation Stop: 09/11/17 13:33 Last Admin: 08/18/17 16:24 Dose: 0.5 mg Magnesium Hydroxide (Milk Of Magnesia) 30 ml PO HS PRN PRN Reason: Constipation Quetiapine Fumarate (Seroquel) 150 mg PO BID EARL PRN Reason: Protocol Stop: 10/12/17 08:59 Last Admin: 08/18/17 16:22 Dose: 150 mg Quetiapine Fumarate (Seroquel) 400 mg PO HS EARL PRN Reason: Protocol Stop: 10/12/17 20:59 Last Admin: 08/17/17 21:32 Dose: 400 mg Zolpidem Tartrate (Ambien) 5 mg PO HS PRN PRN Reason: Insomnia Stop: 10/11/17 13:37 General: No acute distress HEENT: Atraumatic, PERRLA Neck: Supple, JVD Cardiovascular: Regular rate, Normal S1, Normal S2 Lungs: Clear to auscultation Abdomen: Bowel sounds, Soft Assessment/Plan - Assessment Assessment: 1.HYPOTHYROIDISM. 2.PSYCHOSIS. 3.DEMENTIA. - Plan Plan: cont current treatment Nutritional Asmnt/Malnutr-PDOC - Dietary Evaluation Malnutrition Findings (Please click <Entered> for more info): Nutritional Asmnt/Malnutrition Start: 08/17/17 15: 20 Text: Status: Complete Freq: Document 08/17/17 15:20 CHESTER (Rec: 08/17/17 15:28 CHESTER [email or web address]) Nutritional Asmnt/Malnutrition Patient General Information Nutritional Screening Moderate Risk Diagnosis psychosis Pertinent Medical Hx/Surgical Hx Chronic renal disorder, hypothyroidism, psychosis, denmentia Subjective Information Pt seen sitting in dinning room, alert and polite. Pt reported good appetite, waiting for lunch. Per note, PO intake 50-100%. Current Diet Order/ Nutrition Support regular, low sodium Pertinent Medications synthroid, seroquel Pertinent Labs 08/12 Na 135, Alb 4.0 Nutritional Hx/Data Height 1.75 m Height (Calculated Centimeters) 175.3 Current Weight (lbs) 68.039 kg Weight (Calculated Kilograms) 68.0 Weight (Calculated Grams) 98986.9 Micro Body Weight 160 % Micro Body Weight 94 Body Mass Index (BMI) 22.1 Weight Status Approriate GI Symptoms GI Symptoms None Last BM 08/15 Difficult in: None Skin Integrity/Comment: intact Current %PO Good (75-100%) Estimated Nutritional Goals BEE in Kcals: Using Current wt Calories/Kcals/Kg 25-30 Kcals Calculated 2466-7765 Protein: Using Current wt Protein g/k Protein Calculated 68 Fluid: ml 2180-7911 Nutritional Problem No current Nutrition Prob Problem no nutrition problem at this time Malnutrition Alert Protein-Calorie Malnutrition N/A Is there a minimum of two criteria No selected? Query Text:Check all the applicable criteria. A minimum of two criteria are recommended for diagnosis of either severe or non-severe malnutrition. Intervention/Recommendation Comments 1. Continue with current diet as ordered. 2. Monitor PO intake, wt weekly, labs and skin integrity 3. F/U as low risk in 7 days, 08/24 Expected Outcomes/Goals Expected Outcomes/Goals 1. PO intake to meet at least 75% of nutritional needs. 2. Wt stability, skin to remain intact, labs to approach WNL.
[2017-08-19] MEDS: Levothyroxine 0.05 Mg Tab PO SCH (08:31)
[2017-08-19] MEDS: Multivitamin w/ Minerals Tab PO SCH (08:32)
--- NOTE | 2017-08-19 19:17 | General Progress Note ---
Subjective - Review of Systems Service Date: 08/19/17 Subjective: ambulating no distress Objective - Results Result Diagrams: 08/12/17 11:18 08/12/17 11:18 Recent Labs: Laboratory Last Values WBC 8.4 Th/cmm (4.8-10.8) 08/12/17 11:18 RBC 4.54 Mil/cmm (3.80-5.80) 08/12/17 11:18 Hgb 13.0 gm/dL (12-16) 08/12/17 11:18 Hct 39.1 % (41.0-60) L 08/12/17 11:18 MCV 86.2 fl (80-99) 08/12/17 11:18 MCH 28.7 pg (27.0-31.0) 08/12/17 11:18 MCHC Differential 33.3 pg (28.0-36.0) 08/12/17 11:18 RDW 14.7 % (11.5-20.0) 08/12/17 11:18 Plt Count 178 Th/cmm (150-400) 08/12/17 11:18 MPV 8.1 fl 08/12/17 11:18 Neutrophils % 73.3 % (40.0-80.0) 08/12/17 11:18 Lymphocytes % 17.0 % (20.0-50.0) L 08/12/17 11:18 Monocytes % 8.5 % (2.0-10.0) 08/12/17 11:18 Eosinophils % 0.3 % (0.0-5.0) 08/12/17 11:18 Basophils % 0.9 % (0.0-2.0) 08/12/17 11:18 Sodium 135 mEq/L (136-145) L 08/12/17 11:18 Potassium 4.0 mEq/L (3.5-5.1) 08/12/17 11:18 Chloride 103 mEq/L (98-107) 08/12/17 11:18 Carbon Dioxide 26.5 mEq/L (21.0-31.0) 08/12/17 11:18 Anion Gap 9.5 (7.0-16.0) 08/12/17 11:18 BUN 16 mg/dL (7-25) 08/12/17 11:18 Creatinine 0.7 mg/dL (0.7-1.3) 08/12/17 11:18 Est GFR ( Amer) > 60.0 ml/min (>90) 08/12/17 11:18 Est GFR (Non-Af Amer) > 60.0 ml/min 08/12/17 11:18 BUN/Creatinine Ratio 22.9 08/12/17 11:18 Glucose 91 mg/dL (70-105) 08/12/17 11:18 Calcium 9.3 mg/dL (8.6-10.3) 08/12/17 11:18 Total Bilirubin 0.3 mg/dL (0.3-1.0) 08/12/17 11:18 AST 13 U/L (13-39) 08/12/17 11:18 ALT 7 U/L (7-52) 08/12/17 11:18 Alkaline Phosphatase 47 U/L (34-104) 08/12/17 11:18 Total Protein 7.1 gm/dL (6.0-8.3) 08/12/17 11:18 Albumin 4.0 gm/dL (4.2-5.5) L 08/12/17 11:18 Globulin 3.1 gm/dL 08/12/17 11:18 Albumin/Globulin Ratio 1.3 (1.0-1.8) 08/12/17 11:18 TSH 3.48 uIU/ml (0.34-5.60) 08/12/17 11:18 Valproic Acid 115.2 ug/mL (50.0-100.0) H 08/12/17 11:18 - Physical Exam Vitals and I&O: Vital Signs Temp 97.7 F 08/19/17 16:31 Pulse 78 08/19/17 16:31 Resp 20 08/19/17 16:31 BP 121/78 08/19/17 16:31 Pulse Ox 96 08/19/17 16:31 Intake & Output 08/19/17 08/19/17 08/20/17 06:59 18:59 06:59 Intake Total 480 1000 Balance 480 1000 Intake: Oral 480 1000 Other: # Voids 1 4 # Bowel Movements 1 Active Medications: Current Medications Acetaminophen (Tylenol) 650 mg PO Q4HR PRN PRN Reason: Mild Pain / Temp above 100 Stop: 10/11/17 13:33 Al Hydrox/Mg Hydrox/Simethicone (Maalox) 30 ml PO Q4HR PRN PRN Reason: GI DISTRESS Stop: 10/11/17 19:50 Divalproex Sodium (Depakote Dr) 250 mg PO BID EARL PRN Reason: Protocol Stop: 10/12/17 08:59 Last Admin: 08/19/17 16:14 Dose: 250 mg Levothyroxine Sodium (Synthroid) 0.05 mg PO DAILY EARL Stop: 10/12/17 08:59 Last Admin: 08/19/17 08:31 Dose: 0.05 mg Lorazepam (Ativan) 0.5 mg PO Q4HR PRN; Protocol PRN Reason: Agitation Stop: 09/11/17 13:33 Last Admin: 08/19/17 12:35 Dose: 0.5 mg Magnesium Hydroxide (Milk Of Magnesia) 30 ml PO HS PRN PRN Reason: Constipation Quetiapine Fumarate (Seroquel) 150 mg PO BID EARL PRN Reason: Protocol Stop: 10/12/17 08:59 Last Admin: 08/19/17 16:14 Dose: 150 mg Quetiapine Fumarate (Seroquel) 400 mg PO HS EARL PRN Reason: Protocol Stop: 10/12/17 20:59 Last Admin: 08/18/17 20:19 Dose: 400 mg Zolpidem Tartrate (Ambien) 5 mg PO HS PRN PRN Reason: Insomnia Stop: 10/11/17 13:37 Last Admin: 08/18/17 20:19 Dose: 5 mg General: No acute distress HEENT: Atraumatic, PERRLA Neck: Supple, JVD Cardiovascular: Regular rate, Normal S1, Normal S2 Lungs: Clear to auscultation Abdomen: Bowel sounds, Soft Assessment/Plan - Assessment Assessment: 1.HYPOTHYROIDISM. 2.PSYCHOSIS. 3.DEMENTIA. - Plan Plan: cont current treatment Nutritional Asmnt/Malnutr-PDOC - Dietary Evaluation Malnutrition Findings (Please click <Entered> for more info): Nutritional Asmnt/Malnutrition Start: 08/17/17 15: 20 Text: Status: Complete Freq: Document 08/17/17 15:20 JUAN (Rec: 08/17/17 15:28 [email or web address] Nutritional Asmnt/Malnutrition Patient General Information Nutritional Screening Moderate Risk Diagnosis psychosis Pertinent Medical Hx/Surgical Hx Chronic renal disorder, hypothyroidism, psychosis, denmentia Subjective Information Pt seen sitting in dinning room, alert and polite. Pt reported good appetite, waiting for lunch. Per note, PO intake 50-100%. Current Diet Order/ Nutrition Support regular, low sodium Pertinent Medications synthroid, seroquel Pertinent Labs 08/12 Na 135, Alb 4.0 Nutritional Hx/Data Height 1.75 m Height (Calculated Centimeters) 175.3 Current Weight (lbs) 68.039 kg Weight (Calculated Kilograms) 68.0 Weight (Calculated Grams) 69328.9 Cove Body Weight 160 % Cove Body Weight 94 Body Mass Index (BMI) 22.1 Weight Status Approriate GI Symptoms GI Symptoms None Last BM 08/15 Difficult in: None Skin Integrity/Comment: intact Current %PO Good (75-100%) Estimated Nutritional Goals BEE in Kcals: Using Current wt Calories/Kcals/Kg 25-30 Kcals Calculated 6681-4638 Protein: Using Current wt Protein g/k Protein Calculated 68 Fluid: ml 7955-6098 Nutritional Problem No current Nutrition Prob Problem no nutrition problem at this time Malnutrition Alert Protein-Calorie Malnutrition N/A Is there a minimum of two criteria No selected? Query Text:Check all the applicable criteria. A minimum of two criteria are recommended for diagnosis of either severe or non-severe malnutrition. Intervention/Recommendation Comments 1. Continue with current diet as ordered. 2. Monitor PO intake, wt weekly, labs and skin integrity 3. F/U as low risk in 7 days, 08/24 Expected Outcomes/Goals Expected Outcomes/Goals 1. PO intake to meet at least 75% of nutritional needs. 2. Wt stability, skin to remain intact, labs to approach WNL.
[2017-08-20] MEDS: Levothyroxine 0.05 Mg Tab PO SCH (09:36)
[2017-08-20] MEDS: Multivitamin w/ Minerals Tab PO SCH (09:36)
--- NOTE | 2017-08-20 16:49 | General Progress Note ---
Subjective - Review of Systems Service Date: 08/20/17 Subjective: ambulating no distress Objective - Results Result Diagrams: 08/12/17 11:18 08/12/17 11:18 Recent Labs: Laboratory Last Values WBC 8.4 Th/cmm (4.8-10.8) 08/12/17 11:18 RBC 4.54 Mil/cmm (3.80-5.80) 08/12/17 11:18 Hgb 13.0 gm/dL (12-16) 08/12/17 11:18 Hct 39.1 % (41.0-60) L 08/12/17 11:18 MCV 86.2 fl (80-99) 08/12/17 11:18 MCH 28.7 pg (27.0-31.0) 08/12/17 11:18 MCHC Differential 33.3 pg (28.0-36.0) 08/12/17 11:18 RDW 14.7 % (11.5-20.0) 08/12/17 11:18 Plt Count 178 Th/cmm (150-400) 08/12/17 11:18 MPV 8.1 fl 08/12/17 11:18 Neutrophils % 73.3 % (40.0-80.0) 08/12/17 11:18 Lymphocytes % 17.0 % (20.0-50.0) L 08/12/17 11:18 Monocytes % 8.5 % (2.0-10.0) 08/12/17 11:18 Eosinophils % 0.3 % (0.0-5.0) 08/12/17 11:18 Basophils % 0.9 % (0.0-2.0) 08/12/17 11:18 Sodium 135 mEq/L (136-145) L 08/12/17 11:18 Potassium 4.0 mEq/L (3.5-5.1) 08/12/17 11:18 Chloride 103 mEq/L (98-107) 08/12/17 11:18 Carbon Dioxide 26.5 mEq/L (21.0-31.0) 08/12/17 11:18 Anion Gap 9.5 (7.0-16.0) 08/12/17 11:18 BUN 16 mg/dL (7-25) 08/12/17 11:18 Creatinine 0.7 mg/dL (0.7-1.3) 08/12/17 11:18 Est GFR ( Amer) > 60.0 ml/min (>90) 08/12/17 11:18 Est GFR (Non-Af Amer) > 60.0 ml/min 08/12/17 11:18 BUN/Creatinine Ratio 22.9 08/12/17 11:18 Glucose 91 mg/dL (70-105) 08/12/17 11:18 Calcium 9.3 mg/dL (8.6-10.3) 08/12/17 11:18 Total Bilirubin 0.3 mg/dL (0.3-1.0) 08/12/17 11:18 AST 13 U/L (13-39) 08/12/17 11:18 ALT 7 U/L (7-52) 08/12/17 11:18 Alkaline Phosphatase 47 U/L (34-104) 08/12/17 11:18 Total Protein 7.1 gm/dL (6.0-8.3) 08/12/17 11:18 Albumin 4.0 gm/dL (4.2-5.5) L 08/12/17 11:18 Globulin 3.1 gm/dL 08/12/17 11:18 Albumin/Globulin Ratio 1.3 (1.0-1.8) 08/12/17 11:18 TSH 3.48 uIU/ml (0.34-5.60) 08/12/17 11:18 Valproic Acid 115.2 ug/mL (50.0-100.0) H 08/12/17 11:18 - Physical Exam Vitals and I&O: Vital Signs Temp 97.7 F 08/20/17 07:02 Pulse 81 08/20/17 07:02 Resp 19 08/20/17 07:02 BP 137/86 08/20/17 07:02 Pulse Ox 98 08/20/17 07:02 Intake & Output 08/19/17 08/20/17 08/20/17 18:59 06:59 18:59 Intake Total 1000 240 Balance 1000 240 Intake: Oral 1000 240 Other: # Voids 4 2 # Bowel Movements 1 Active Medications: Current Medications Acetaminophen (Tylenol) 650 mg PO Q4HR PRN PRN Reason: Mild Pain / Temp above 100 Stop: 10/11/17 13:33 Al Hydrox/Mg Hydrox/Simethicone (Maalox) 30 ml PO Q4HR PRN PRN Reason: GI DISTRESS Stop: 10/11/17 19:50 Divalproex Sodium (Depakote Dr) 250 mg PO BID EARL PRN Reason: Protocol Stop: 10/12/17 08:59 Last Admin: 08/20/17 09:36 Dose: 250 mg Levothyroxine Sodium (Synthroid) 0.05 mg PO DAILY EARL Stop: 10/12/17 08:59 Last Admin: 08/20/17 09:36 Dose: 0.05 mg Lorazepam (Ativan) 0.5 mg PO Q4HR PRN; Protocol PRN Reason: Agitation Stop: 09/11/17 13:33 Last Admin: 08/19/17 12:35 Dose: 0.5 mg Magnesium Hydroxide (Milk Of Magnesia) 30 ml PO HS PRN PRN Reason: Constipation Quetiapine Fumarate (Seroquel) 150 mg PO BID EARL PRN Reason: Protocol Stop: 10/12/17 08:59 Last Admin: 08/20/17 09:36 Dose: 150 mg Quetiapine Fumarate (Seroquel) 400 mg PO HS EARL PRN Reason: Protocol Stop: 10/12/17 20:59 Last Admin: 08/19/17 21:50 Dose: 400 mg Zolpidem Tartrate (Ambien) 5 mg PO HS PRN PRN Reason: Insomnia Stop: 10/11/17 13:37 Last Admin: 08/18/17 20:19 Dose: 5 mg General: No acute distress HEENT: Atraumatic, PERRLA Neck: Supple, JVD Cardiovascular: Regular rate, Normal S1, Normal S2 Lungs: Clear to auscultation Abdomen: Bowel sounds, Soft Assessment/Plan - Assessment Assessment: 1.HYPOTHYROIDISM. 2.PSYCHOSIS. 3.DEMENTIA. - Plan Plan: cont current treatment Nutritional Asmnt/Malnutr-PDOC - Dietary Evaluation Malnutrition Findings (Please click <Entered> for more info): Nutritional Asmnt/Malnutrition Start: 08/17/17 15: 20 Text: Status: Complete Freq: Document 08/17/17 15:20 JUAN (Rec: 08/17/17 15:28 [email or web address] Nutritional Asmnt/Malnutrition Patient General Information Nutritional Screening Moderate Risk Diagnosis psychosis Pertinent Medical Hx/Surgical Hx Chronic renal disorder, hypothyroidism, psychosis, denmentia Subjective Information Pt seen sitting in dinning room, alert and polite. Pt reported good appetite, waiting for lunch. Per note, PO intake 50-100%. Current Diet Order/ Nutrition Support regular, low sodium Pertinent Medications synthroid, seroquel Pertinent Labs 08/12 Na 135, Alb 4.0 Nutritional Hx/Data Height 1.75 m Height (Calculated Centimeters) 175.3 Current Weight (lbs) 68.039 kg Weight (Calculated Kilograms) 68.0 Weight (Calculated Grams) 25383.9 [place] Body Weight 160 % [place] Body Weight 94 Body Mass Index (BMI) 22.1 Weight Status Approriate GI Symptoms GI Symptoms None Last BM 08/15 Difficult in: None Skin Integrity/Comment: intact Current %PO Good (75-100%) Estimated Nutritional Goals BEE in Kcals: Using Current wt Calories/Kcals/Kg 25-30 Kcals Calculated 8680-5054 Protein: Using Current wt Protein g/k Protein Calculated 68 Fluid: ml 2772-7472 Nutritional Problem No current Nutrition Prob Problem no nutrition problem at this time Malnutrition Alert Protein-Calorie Malnutrition N/A Is there a minimum of two criteria No selected? Query Text:Check all the applicable criteria. A minimum of two criteria are recommended for diagnosis of either severe or non-severe malnutrition. Intervention/Recommendation Comments 1. Continue with current diet as ordered. 2. Monitor PO intake, wt weekly, labs and skin integrity 3. F/U as low risk in 7 days, 08/24 Expected Outcomes/Goals Expected Outcomes/Goals 1. PO intake to meet at least 75% of nutritional needs. 2. Wt stability, skin to remain intact, labs to approach WNL.
--- NOTE | 2017-08-20 22:30 | Progress Notes ---
DATE: The patient was seen and evaluated. The patient's chart reviewed. It is Dr. Bear covering for Dr. Hollingsworth. The patient is a 67-year-old male who was initially brought in here for increased agitation, bizarre behavior, very restless, and unable to be redirectable, was pacing in and out. Overnight nursing staff reported the patient continues to be easily obsessive, perseverates, needs a lot of redirection. Today, on [id number] evaluation, the patient reports that he has lost his boarding care, not very upcoming, minimizing, and guarded. MENTAL STATUS EXAMINATION: Easily irritable, agitated. Still redirection needed for his ADLs, as he continues to be malodorous. ASSESSMENT AND PLAN: The patient is a 67-year-old male, who still needs a lot of redirection to continue with ADL maintenance. We will continue to monitor and evaluate. We will continue with the current medication regimen, which include Seroquel 150 mg p.o. b.i.d. and 400 mg at nighttime as he is still reaching steady state increase less than 72 hours ago; therefore, we will continue monitoring and evaluating. No medication side effects were noted and able to tolerate it. [facility]# [id number]
--- NOTE | 2017-08-21 08:12 | Discharge Summary ---
DATE OF DISCHARGE: 08/21/2017 DATE OF DISCHARGE: 08/21/2017. AGE: 67. SEX: Male. PHYSICIAN: Dr. Hollingsworth. FINAL DIAGNOSES: PRIMARY DIAGNOSIS: Bipolar disorder, severe, mixed type, with psychotic features. REASON FOR HOSPITALIZATION: The patient was admitted to the hospital because of increased agitation and bizarre behavior in the custodial where he lives and he was pacing up and down the unit and easily agitated and irritable and he was unable to care for self. HOSPITAL COURSE: The patient continued to be severely agitated and irritable mood. The patient continued to take Depakote in a dose of 250 mg twice a day and Seroquel was started on a dose of 150 mg twice a day and 400 mg at bedtime. The patient was still have grandiose delusions and manic. He was also pacing up and down. Gradually, the patient's affect was brighter. The patient was less agitated and less irritable and the patient was discharged from the hospital. Physical exam of the patient showed no major medical problems. Depakote blood level upon admission was 112.5. AFTER DISCHARGE PLANS: The patient discharged from the hospital return to [facility] with plans for followup there. EXPECTED OUTCOME AFTER DISCHARGE: Fair if the patient continued to take his psychotropic medications and follow up with discharge plans. [facility]# [id number]
[2017-08-21] MEDS: Levothyroxine 0.05 Mg Tab PO SCH (08:13)
[2017-08-21] MEDS: Multivitamin w/ Minerals Tab PO SCH (08:13)
--- NOTE | 2017-08-21 16:00 | Internal Medicine Prog Note ---
Internal Medicine Subjective - Subjective Service Date: 08/21/17 Patient seen and examined:: without staff Patient is:: awake, verbal, in bed, talking, confused Per staff patient has:: no adverse event (HE IS DOING WELL,NO CHANGES) Internal Medicine Objective - Results Result Diagrams: 08/12/17 11:18 08/12/17 11:18 Recent Labs: Laboratory Last Values WBC 8.4 Th/cmm (4.8-10.8) 08/12/17 11:18 RBC 4.54 Mil/cmm (3.80-5.80) 08/12/17 11:18 Hgb 13.0 gm/dL (12-16) 08/12/17 11:18 Hct 39.1 % (41.0-60) L 08/12/17 11:18 MCV 86.2 fl (80-99) 08/12/17 11:18 MCH 28.7 pg (27.0-31.0) 08/12/17 11:18 MCHC Differential 33.3 pg (28.0-36.0) 08/12/17 11:18 RDW 14.7 % (11.5-20.0) 08/12/17 11:18 Plt Count 178 Th/cmm (150-400) 08/12/17 11:18 MPV 8.1 fl 08/12/17 11:18 Neutrophils % 73.3 % (40.0-80.0) 08/12/17 11:18 Lymphocytes % 17.0 % (20.0-50.0) L 08/12/17 11:18 Monocytes % 8.5 % (2.0-10.0) 08/12/17 11:18 Eosinophils % 0.3 % (0.0-5.0) 08/12/17 11:18 Basophils % 0.9 % (0.0-2.0) 08/12/17 11:18 Sodium 135 mEq/L (136-145) L 08/12/17 11:18 Potassium 4.0 mEq/L (3.5-5.1) 08/12/17 11:18 Chloride 103 mEq/L (98-107) 08/12/17 11:18 Carbon Dioxide 26.5 mEq/L (21.0-31.0) 08/12/17 11:18 Anion Gap 9.5 (7.0-16.0) 08/12/17 11:18 BUN 16 mg/dL (7-25) 08/12/17 11:18 Creatinine 0.7 mg/dL (0.7-1.3) 08/12/17 11:18 Est GFR ( Amer) > 60.0 ml/min (>90) 08/12/17 11:18 Est GFR (Non-Af Amer) > 60.0 ml/min 08/12/17 11:18 BUN/Creatinine Ratio 22.9 08/12/17 11:18 Glucose 91 mg/dL (70-105) 08/12/17 11:18 Calcium 9.3 mg/dL (8.6-10.3) 08/12/17 11:18 Total Bilirubin 0.3 mg/dL (0.3-1.0) 08/12/17 11:18 AST 13 U/L (13-39) 08/12/17 11:18 ALT 7 U/L (7-52) 08/12/17 11:18 Alkaline Phosphatase 47 U/L (34-104) 08/12/17 11:18 Total Protein 7.1 gm/dL (6.0-8.3) 08/12/17 11:18 Albumin 4.0 gm/dL (4.2-5.5) L 08/12/17 11:18 Globulin 3.1 gm/dL 08/12/17 11:18 Albumin/Globulin Ratio 1.3 (1.0-1.8) 08/12/17 11:18 TSH 3.48 uIU/ml (0.34-5.60) 08/12/17 11:18 Valproic Acid 115.2 ug/mL (50.0-100.0) H 08/12/17 11:18 - Physical Exam Vitals and I&O: Vital Signs Temp 98.2 F 08/21/17 12:26 Pulse 79 08/21/17 12:26 Resp 20 08/21/17 12:26 BP 128/88 08/21/17 12:26 Pulse Ox 98 08/21/17 12:26 Intake & Output 08/20/17 08/21/17 08/21/17 18:59 06:59 18:59 Intake Total 240 Balance 240 Intake: Oral 240 Other: # Voids 2 # Bowel Movements 0 Active Medications: Current Medications Acetaminophen (Tylenol) 650 mg PO Q4HR PRN PRN Reason: Mild Pain / Temp above 100 Stop: 10/11/17 13:33 Al Hydrox/Mg Hydrox/Simethicone (Maalox) 30 ml PO Q4HR PRN PRN Reason: GI DISTRESS Stop: 10/11/17 19:50 Divalproex Sodium (Depakote Dr) 250 mg PO BID EARL PRN Reason: Protocol Stop: 10/12/17 08:59 Last Admin: 08/21/17 08:14 Dose: 250 mg Levothyroxine Sodium (Synthroid) 0.05 mg PO DAILY EARL Stop: 10/12/17 08:59 Last Admin: 08/21/17 08:13 Dose: 0.05 mg Lorazepam (Ativan) 0.5 mg PO Q4HR PRN; Protocol PRN Reason: Agitation Stop: 09/11/17 13:33 Last Admin: 08/19/17 12:35 Dose: 0.5 mg Magnesium Hydroxide (Milk Of Magnesia) 30 ml PO HS PRN PRN Reason: Constipation Quetiapine Fumarate (Seroquel) 150 mg PO BID EARL PRN Reason: Protocol Stop: 10/12/17 08:59 Last Admin: 08/21/17 08:13 Dose: 150 mg Quetiapine Fumarate (Seroquel) 400 mg PO HS EARL PRN Reason: Protocol Stop: 10/12/17 20:59 Last Admin: 08/20/17 21:15 Dose: 400 mg Zolpidem Tartrate (Ambien) 5 mg PO HS PRN PRN Reason: Insomnia Stop: 10/11/17 13:37 Last Admin: 08/20/17 21:15 Dose: 5 mg General: demented HEENT: NC/AT, PERRLA, EOMI, anicteric sclerae, throat clear Neck: Supple, No JVD, No thyromegaly, +2 carotid pulse wo bruit, No LAD Lungs: CTAB Cardiovascular: RRR, Normal S1, Normal S2, without murmur Abdomen: non-tender, non-distended Extremities: clear Neurological: no change Internal Medicine Assmt/Plan - Assessment Assessment: 1.HYPOTHYROIDISM. 2.PSYCHOSIS. 3.DEMENTIA. - Plan Plan: CONTINUE ON CURRENT MEDICATTION AND DIET. Nutritional Asmnt/Malnutr-PDOC - Dietary Evaluation Malnutrition Findings (Please click <Entered> for more info): Nutritional Asmnt/Malnutrition Start: 08/17/17 15: 20 Text: Status: Complete Freq: Document 08/17/17 15:20 LCCHESTERG (Rec: 08/17/17 15:28 LCCHESTERG [email or web address]) Nutritional Asmnt/Malnutrition Patient General Information Nutritional Screening Moderate Risk Diagnosis psychosis Pertinent Medical Hx/Surgical Hx Chronic renal disorder, hypothyroidism, psychosis, denmentia Subjective Information Pt seen sitting in dinning room, alert and polite. Pt reported good appetite, waiting for lunch. Per note, PO intake 50-100%. Current Diet Order/ Nutrition Support regular, low sodium Pertinent Medications synthroid, seroquel Pertinent Labs 08/12 Na 135, Alb 4.0 Nutritional Hx/Data Height 1.75 m Height (Calculated Centimeters) 175.3 Current Weight (lbs) 68.039 kg Weight (Calculated Kilograms) 68.0 Weight (Calculated Grams) 80900.9 [place] Body Weight 160 % [place] Body Weight 94 Body Mass Index (BMI) 22.1 Weight Status Approriate GI Symptoms GI Symptoms None Last BM 08/15 Difficult in: None Skin Integrity/Comment: intact Current %PO Good (75-100%) Estimated Nutritional Goals BEE in Kcals: Using Current wt Calories/Kcals/Kg 25-30 Kcals Calculated 4017-4466 Protein: Using Current wt Protein g/k Protein Calculated 68 Fluid: ml 2028-8949 Nutritional Problem No current Nutrition Prob Problem no nutrition problem at this time Malnutrition Alert Protein-Calorie Malnutrition N/A Is there a minimum of two criteria No selected? Query Text:Check all the applicable criteria. A minimum of two criteria are recommended for diagnosis of either severe or non-severe malnutrition. Intervention/Recommendation Comments 1. Continue with current diet as ordered. 2. Monitor PO intake, wt weekly, labs and skin integrity 3. F/U as low risk in 7 days, 08/24 Expected Outcomes/Goals Expected Outcomes/Goals 1. PO intake to meet at least 75% of nutritional needs. 2. Wt stability, skin to remain intact, labs to approach WNL.
--- NOTE | 2017-08-22 07:18 | Discharge Summary ---
DATE OF DISCHARGE: DATE OF ADMISSION: 08/12/2017 DATE OF DISCHARGE: 08/22/2017 PATIENT'S AGE: 67. SEX: Male. PHYSICIAN: Ge Hollingsworth M.D., M.P.H. FINAL DIAGNOSES/PRIMARY DIAGNOSES: Bipolar disorder, severe, mixed, with psychotic features. REASON FOR HOSPITALIZATION: The patient was admitted to the hospital because of increased agitation, irritability, manic behavior, not sleeping and acting bizarre. HOSPITAL COURSE: The patient continued to be irritable and bizarre. The patient has also been needing lots of redirections. 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 Gradually, the patient's affect was brighter. The patient was . It was easier to redirect him. The patient was discharged from the hospital and he was accepted in [facility]. The patient continued to take Seroquel, dose adjusted to 150 mg twice a day and 400 mg at bedtime with no side effects. Also, continue to take Depakote in dose of 250 mg twice a day. Depakote blood level upon admission was 12 and on 08/12/2017 was 115.2. AFTER DISCHARGE PLANS: The patient discharged from the hospital, went to [facility] with plan to follow him there. EXPECTED OUTCOME AFTER DISCHARGE: Fair if the patient continues with his outpatient treatment and follow up with discharge plans. JOB# [id number]
[2017-08-22] MEDS: Levothyroxine 0.05 Mg Tab PO SCH (08:48)
[2017-08-22] MEDS: Multivitamin w/ Minerals Tab PO SCH (08:48)
--- NOTE | 2017-08-22 18:20 | Internal Medicine Prog Note ---
Internal Medicine Subjective - Subjective Service Date: 08/22/17 Patient seen and examined:: without staff Patient is:: awake, verbal, in bed, talking, confused Per staff patient has:: no adverse event (HE IS DOING WELL,NO CHANGES) Internal Medicine Objective - Results Result Diagrams: 08/12/17 11:18 08/12/17 11:18 Recent Labs: Laboratory Last Values WBC 8.4 Th/cmm (4.8-10.8) 08/12/17 11:18 RBC 4.54 Mil/cmm (3.80-5.80) 08/12/17 11:18 Hgb 13.0 gm/dL (12-16) 08/12/17 11:18 Hct 39.1 % (41.0-60) L 08/12/17 11:18 MCV 86.2 fl (80-99) 08/12/17 11:18 MCH 28.7 pg (27.0-31.0) 08/12/17 11:18 MCHC Differential 33.3 pg (28.0-36.0) 08/12/17 11:18 RDW 14.7 % (11.5-20.0) 08/12/17 11:18 Plt Count 178 Th/cmm (150-400) 08/12/17 11:18 MPV 8.1 fl 08/12/17 11:18 Neutrophils % 73.3 % (40.0-80.0) 08/12/17 11:18 Lymphocytes % 17.0 % (20.0-50.0) L 08/12/17 11:18 Monocytes % 8.5 % (2.0-10.0) 08/12/17 11:18 Eosinophils % 0.3 % (0.0-5.0) 08/12/17 11:18 Basophils % 0.9 % (0.0-2.0) 08/12/17 11:18 Sodium 135 mEq/L (136-145) L 08/12/17 11:18 Potassium 4.0 mEq/L (3.5-5.1) 08/12/17 11:18 Chloride 103 mEq/L (98-107) 08/12/17 11:18 Carbon Dioxide 26.5 mEq/L (21.0-31.0) 08/12/17 11:18 Anion Gap 9.5 (7.0-16.0) 08/12/17 11:18 BUN 16 mg/dL (7-25) 08/12/17 11:18 Creatinine 0.7 mg/dL (0.7-1.3) 08/12/17 11:18 Est GFR ( Amer) > 60.0 ml/min (>90) 08/12/17 11:18 Est GFR (Non-Af Amer) > 60.0 ml/min 08/12/17 11:18 BUN/Creatinine Ratio 22.9 08/12/17 11:18 Glucose 91 mg/dL (70-105) 08/12/17 11:18 Calcium 9.3 mg/dL (8.6-10.3) 08/12/17 11:18 Total Bilirubin 0.3 mg/dL (0.3-1.0) 08/12/17 11:18 AST 13 U/L (13-39) 08/12/17 11:18 ALT 7 U/L (7-52) 08/12/17 11:18 Alkaline Phosphatase 47 U/L (34-104) 08/12/17 11:18 Total Protein 7.1 gm/dL (6.0-8.3) 08/12/17 11:18 Albumin 4.0 gm/dL (4.2-5.5) L 08/12/17 11:18 Globulin 3.1 gm/dL 08/12/17 11:18 Albumin/Globulin Ratio 1.3 (1.0-1.8) 08/12/17 11:18 TSH 3.48 uIU/ml (0.34-5.60) 08/12/17 11:18 Valproic Acid 115.2 ug/mL (50.0-100.0) H 08/12/17 11:18 - Physical Exam Vitals and I&O: Vital Signs Temp 98.1 F 08/22/17 14:00 Pulse 84 08/22/17 14:00 Resp 20 08/22/17 14:00 BP 138/80 08/22/17 14:00 Pulse Ox 96 08/22/17 14:00 Intake & Output 08/21/17 08/22/17 08/22/17 18:59 06:59 18:59 Intake Total 7294 866 0722 Balance 6440 209 0266 Intake: Oral 1049 906 7880 Other: # Voids 4 2 # Bowel Movements 1 1 1 Active Medications: Current Medications Acetaminophen (Tylenol) 650 mg PO Q4HR PRN PRN Reason: Mild Pain / Temp above 100 Stop: 10/11/17 13:33 Al Hydrox/Mg Hydrox/Simethicone (Maalox) 30 ml PO Q4HR PRN PRN Reason: GI DISTRESS Stop: 10/11/17 19:50 Divalproex Sodium (Depakote Dr) 250 mg PO BID EARL PRN Reason: Protocol Stop: 10/12/17 08:59 Last Admin: 08/22/17 16:09 Dose: 250 mg Levothyroxine Sodium (Synthroid) 0.05 mg PO DAILY EARL Stop: 10/12/17 08:59 Last Admin: 08/22/17 08:48 Dose: 0.05 mg Lorazepam (Ativan) 0.5 mg PO Q4HR PRN; Protocol PRN Reason: Agitation Stop: 09/11/17 13:33 Last Admin: 08/22/17 08:47 Dose: 0.5 mg Magnesium Hydroxide (Milk Of Magnesia) 30 ml PO HS PRN PRN Reason: Constipation Quetiapine Fumarate (Seroquel) 150 mg PO BID EARL PRN Reason: Protocol Stop: 10/12/17 08:59 Last Admin: 08/22/17 16:09 Dose: 150 mg Quetiapine Fumarate (Seroquel) 400 mg PO HS EARL PRN Reason: Protocol Stop: 10/12/17 20:59 Last Admin: 08/21/17 20:41 Dose: 400 mg Zolpidem Tartrate (Ambien) 5 mg PO HS PRN PRN Reason: Insomnia Stop: 10/11/17 13:37 Last Admin: 08/21/17 20:41 Dose: 5 mg General: demented HEENT: NC/AT, PERRLA, EOMI, anicteric sclerae, throat clear Neck: Supple, No JVD, No thyromegaly, +2 carotid pulse wo bruit, No LAD Lungs: CTAB Cardiovascular: RRR, Normal S1, Normal S2, without murmur Abdomen: non-tender, non-distended Extremities: clear Neurological: no change Internal Medicine Assmt/Plan - Assessment Assessment: 1.HYPOTHYROIDISM. 2.PSYCHOSIS. 3.DEMENTIA. - Plan Plan: CONTINUE ON CURRENT MEDICATION AND DIET. Nutritional Asmnt/Malnutr-PDOC - Dietary Evaluation Malnutrition Findings (Please click <Entered> for more info): Nutritional Asmnt/Malnutrition Start: 08/17/17 15: 20 Text: Status: Complete Freq: Document 08/17/17 15:20 LCCHESTERG (Rec: 08/17/17 15:28 LCCHESTERG [id number]) Nutritional Asmnt/Malnutrition Patient General Information Nutritional Screening Moderate Risk Diagnosis psychosis Pertinent Medical Hx/Surgical Hx Chronic renal disorder, hypothyroidism, psychosis, denmentia Subjective Information Pt seen sitting in dinning room, alert and polite. Pt reported good appetite, waiting for lunch. Per note, PO intake 50-100%. Current Diet Order/ Nutrition Support regular, low sodium Pertinent Medications synthroid, seroquel Pertinent Labs 08/12 Na 135, Alb 4.0 Nutritional Hx/Data Height 1.75 m Height (Calculated Centimeters) 175.3 Current Weight (lbs) 68.039 kg Weight (Calculated Kilograms) 68.0 Weight (Calculated Grams) 84644.9 [place] Body Weight 160 % [place] Body Weight 94 Body Mass Index (BMI) 22.1 Weight Status Approriate GI Symptoms GI Symptoms None Last BM 08/15 Difficult in: None Skin Integrity/Comment: intact Current %PO Good (75-100%) Estimated Nutritional Goals BEE in Kcals: Using Current wt Calories/Kcals/Kg 25-30 Kcals Calculated 3356-5142 Protein: Using Current wt Protein g/k Protein Calculated 68 Fluid: ml 0391-5922 Nutritional Problem No current Nutrition Prob Problem no nutrition problem at this time Malnutrition Alert Protein-Calorie Malnutrition N/A Is there a minimum of two criteria No selected? Query Text:Check all the applicable criteria. A minimum of two criteria are recommended for diagnosis of either severe or non-severe malnutrition. Intervention/Recommendation Comments 1. Continue with current diet as ordered. 2. Monitor PO intake, wt weekly, labs and skin integrity 3. F/U as low risk in 7 days, 08/24 Expected Outcomes/Goals Expected Outcomes/Goals 1. PO intake to meet at least 75% of nutritional needs. 2. Wt stability, skin to remain intact, labs to approach WNL.
[2017-08-23] MEDS: Multivitamin w/ Minerals Tab PO SCH (09:13)
[2017-08-23] MEDS: Levothyroxine 0.05 Mg Tab PO SCH (09:13)
--- NOTE | 2017-08-23 15:44 | Internal Medicine Prog Note ---
Internal Medicine Subjective - Subjective Service Date: 08/23/17 Patient seen and examined:: with staff (HE FEELS WELL) Patient is:: awake, verbal, in bed, talking, confused Per staff patient has:: no adverse event (HE IS DOING WELL,NO CHANGES) Internal Medicine Objective - Results Result Diagrams: 08/12/17 11:18 08/12/17 11:18 Recent Labs: Laboratory Last Values WBC 8.4 Th/cmm (4.8-10.8) 08/12/17 11:18 RBC 4.54 Mil/cmm (3.80-5.80) 08/12/17 11:18 Hgb 13.0 gm/dL (12-16) 08/12/17 11:18 Hct 39.1 % (41.0-60) L 08/12/17 11:18 MCV 86.2 fl (80-99) 08/12/17 11:18 MCH 28.7 pg (27.0-31.0) 08/12/17 11:18 MCHC Differential 33.3 pg (28.0-36.0) 08/12/17 11:18 RDW 14.7 % (11.5-20.0) 08/12/17 11:18 Plt Count 178 Th/cmm (150-400) 08/12/17 11:18 MPV 8.1 fl 08/12/17 11:18 Neutrophils % 73.3 % (40.0-80.0) 08/12/17 11:18 Lymphocytes % 17.0 % (20.0-50.0) L 08/12/17 11:18 Monocytes % 8.5 % (2.0-10.0) 08/12/17 11:18 Eosinophils % 0.3 % (0.0-5.0) 08/12/17 11:18 Basophils % 0.9 % (0.0-2.0) 08/12/17 11:18 Sodium 135 mEq/L (136-145) L 08/12/17 11:18 Potassium 4.0 mEq/L (3.5-5.1) 08/12/17 11:18 Chloride 103 mEq/L (98-107) 08/12/17 11:18 Carbon Dioxide 26.5 mEq/L (21.0-31.0) 08/12/17 11:18 Anion Gap 9.5 (7.0-16.0) 08/12/17 11:18 BUN 16 mg/dL (7-25) 08/12/17 11:18 Creatinine 0.7 mg/dL (0.7-1.3) 08/12/17 11:18 Est GFR ( Amer) > 60.0 ml/min (>90) 08/12/17 11:18 Est GFR (Non-Af Amer) > 60.0 ml/min 08/12/17 11:18 BUN/Creatinine Ratio 22.9 08/12/17 11:18 Glucose 91 mg/dL (70-105) 08/12/17 11:18 Calcium 9.3 mg/dL (8.6-10.3) 08/12/17 11:18 Total Bilirubin 0.3 mg/dL (0.3-1.0) 08/12/17 11:18 AST 13 U/L (13-39) 08/12/17 11:18 ALT 7 U/L (7-52) 08/12/17 11:18 Alkaline Phosphatase 47 U/L (34-104) 08/12/17 11:18 Total Protein 7.1 gm/dL (6.0-8.3) 08/12/17 11:18 Albumin 4.0 gm/dL (4.2-5.5) L 08/12/17 11:18 Globulin 3.1 gm/dL 08/12/17 11:18 Albumin/Globulin Ratio 1.3 (1.0-1.8) 08/12/17 11:18 TSH 3.48 uIU/ml (0.34-5.60) 08/12/17 11:18 Valproic Acid 115.2 ug/mL (50.0-100.0) H 08/12/17 11:18 - Physical Exam Vitals and I&O: Vital Signs Temp 98.1 F 08/23/17 15:21 Pulse 96 08/23/17 15:21 Resp 20 08/23/17 15:21 BP 111/71 08/23/17 15:21 Pulse Ox 96 08/23/17 15:21 Intake & Output 08/22/17 08/23/17 08/23/17 18:59 06:59 18:59 Intake Total 1200 120 Balance 1200 120 Intake: Oral 1200 120 Other: # Voids 3 # Bowel Movements 1 Active Medications: Current Medications Acetaminophen (Tylenol) 650 mg PO Q4HR PRN PRN Reason: Mild Pain / Temp above 100 Stop: 10/11/17 13:33 Al Hydrox/Mg Hydrox/Simethicone (Maalox) 30 ml PO Q4HR PRN PRN Reason: GI DISTRESS Stop: 10/11/17 19:50 Divalproex Sodium (Depakote Dr) 250 mg PO BID EARL PRN Reason: Protocol Stop: 10/12/17 08:59 Last Admin: 08/23/17 09:12 Dose: 250 mg Levothyroxine Sodium (Synthroid) 0.05 mg PO DAILY EARL Stop: 10/12/17 08:59 Last Admin: 08/23/17 09:13 Dose: 0.05 mg Lorazepam (Ativan) 0.5 mg PO Q4HR PRN; Protocol PRN Reason: Agitation Stop: 09/11/17 13:33 Last Admin: 08/22/17 08:47 Dose: 0.5 mg Magnesium Hydroxide (Milk Of Magnesia) 30 ml PO HS PRN PRN Reason: Constipation Quetiapine Fumarate (Seroquel) 150 mg PO BID EARL PRN Reason: Protocol Stop: 10/12/17 08:59 Last Admin: 08/23/17 09:13 Dose: 150 mg Quetiapine Fumarate (Seroquel) 400 mg PO HS EARL PRN Reason: Protocol Stop: 10/12/17 20:59 Last Admin: 08/22/17 21:15 Dose: 400 mg Zolpidem Tartrate (Ambien) 5 mg PO HS PRN PRN Reason: Insomnia Stop: 10/11/17 13:37 Last Admin: 08/21/17 20:41 Dose: 5 mg General: demented HEENT: NC/AT, PERRLA, EOMI, anicteric sclerae, throat clear Neck: Supple, No JVD, No thyromegaly, +2 carotid pulse wo bruit, No LAD Lungs: CTAB Cardiovascular: RRR, Normal S1, Normal S2, without murmur Abdomen: non-tender, non-distended Extremities: clear Neurological: no change Internal Medicine Assmt/Plan - Assessment Assessment: 1.HYPOTHYROIDISM. 2.PSYCHOSIS. 3.DEMENTIA. - Plan Plan: CONTINUE ON CURRENT MEDICATION AND DIET. Nutritional Asmnt/Malnutr-PDOC - Dietary Evaluation Malnutrition Findings (Please click <Entered> for more info): Nutritional Asmnt/Malnutrition Start: 08/17/17 15: 20 Text: Status: Complete Freq: Document 08/17/17 15:20 LCCHESTERG (Rec: 08/17/17 15:28 LCCHESTERG [id number]) Nutritional Asmnt/Malnutrition Patient General Information Nutritional Screening Moderate Risk Diagnosis psychosis Pertinent Medical Hx/Surgical Hx Chronic renal disorder, hypothyroidism, psychosis, denmentia Subjective Information Pt seen sitting in dinning room, alert and polite. Pt reported good appetite, waiting for lunch. Per note, PO intake 50-100%. Current Diet Order/ Nutrition Support regular, low sodium Pertinent Medications synthroid, seroquel Pertinent Labs 08/12 Na 135, Alb 4.0 Nutritional Hx/Data Height 1.75 m Height (Calculated Centimeters) 175.3 Current Weight (lbs) 68.039 kg Weight (Calculated Kilograms) 68.0 Weight (Calculated Grams) 94536.9 Purcell Body Weight 160 % Purcell Body Weight 94 Body Mass Index (BMI) 22.1 Weight Status Approriate GI Symptoms GI Symptoms None Last BM 08/15 Difficult in: None Skin Integrity/Comment: intact Current %PO Good (75-100%) Estimated Nutritional Goals BEE in Kcals: Using Current wt Calories/Kcals/Kg 25-30 Kcals Calculated 9387-5225 Protein: Using Current wt Protein g/k Protein Calculated 68 Fluid: ml [id number] Nutritional Problem No current Nutrition Prob Problem no nutrition problem at this time Malnutrition Alert Protein-Calorie Malnutrition N/A Is there a minimum of two criteria No selected? Query Text:Check all the applicable criteria. A minimum of two criteria are recommended for diagnosis of either severe or non-severe malnutrition. Intervention/Recommendation Comments 1. Continue with current diet as ordered. 2. Monitor PO intake, wt weekly, labs and skin integrity 3. F/U as low risk in 7 days, 08/24 Expected Outcomes/Goals Expected Outcomes/Goals 1. PO intake to meet at least 75% of nutritional needs. 2. Wt stability, skin to remain intact, labs to approach WNL.
--- NOTE | 2017-08-24 08:09 | Discharge Summary ---
DATE OF DISCHARGE: 08/24/2017 PSYCHIATRIC DISCHARGE SUMMARY ADDENDUM FINAL DIAGNOSIS/PRIMARY DIAGNOSIS: Bipolar disorder, mixed type, with psychotic features. REASON FOR HOSPITALIZATION: The patient was admitted to the hospital because of bizarre behavior and agitation. HOSPITAL COURSE: The patient continued to be anxious and paranoid. He was also delusional. The patient was compliant with taking Depakote and Seroquel. Seroquel dose adjusted to 150 mg twice a day and 400 mg at bedtime. Gradually, the patient's affect was brighter. The patient was less irritable and less agitated. Placement was an issue, but [facility] accepted the patient. Physical exam of the patient showed no major medical problems. AFTER DISCHARGE PLANS: The patient discharged from the hospital with plans for outpatient treatment there. EXPECTED OUTCOME AFTER DISCHARGE: Fair if the patient continued to take his psychotropic medications and follow up with his treatment plans. [facility]# [id number]
[2017-08-24] MEDS: Multivitamin w/ Minerals Tab PO SCH (08:44)
[2017-08-24] MEDS: Levothyroxine 0.05 Mg Tab PO SCH (08:45)
--- NOTE | 2017-08-24 09:00 | Progress Notes ---
DATE: 08/23/2017 SUBJECTIVE: Chart reviewed and the patient interviewed. Also discussed the patient's condition with the staff and reviewed records and labs. The patient is still agitated and restless and he is still anxious about placement. He still does not want to go back to a [facility] and he thinks that he has a place to go to in [place]. The patient was supposed to be discharged yesterday, but the patient was not discharged and the patient remains in the hospital. Discussed with the patient discharging him to [facility], but he is still insisting not to go there. We will work with community case manager in regard to discharge plans and placement issue. JOB# [id number]
== END 2017-08-24 14:10 | DRG 885 ==
LOC: ER 10:47 → GERO 12:27
PROVIDERS: ADMIT Psychiatry & Neurology Psychiatry; ATTEND Psychiatry & Neurology Psychiatry
DX: F31.64 Bipolar disorder, current episode mixed, severe, with psychotic features (principal); F03.90 Unspecified dementia, unspecified severity, without behavioral disturbance, psychotic disturbance, mood disturbance, and anxiety; J44.9 Chronic obstructive pulmonary disease, unspecified; E03.9 Hypothyroidism, unspecified; F29 Unspecified psychosis not due to a substance or known physiological condition; I10 Essential (primary) hypertension; K21.9 Gastro-esophageal reflux disease without esophagitis; F42.9 Obsessive-compulsive disorder, unspecified; E07.9 Disorder of thyroid, unspecified; Z87.11 Personal history of peptic ulcer disease
CPT/HCPCS: 36415-UA; 80053-TC; 80164-TC; 84443-TC; 85025-TC; G0410; J1200; J1630; J2060; Z7610